=== PATIENT | female | born 1985 | race Caucasian/White ===

== ENCOUNTER 2023-06-19 09:33 | Outpatient (REF) | payer OTHER, SELFPAY ==
[2023-06-19 14:47] LABS: Hematocrit 37.3 % (37.0-47.0); Mean Corpuscular HGB Conc 32.2 g/dl (31.0-35.0); Mean Corpuscular Hemoglobin 31.3 pg (27.0-33.0); Mean Corpuscular Volume 97.4 fL (80.0-98.0); Mean Platelet Volume 9.9 fL (9.4-12.3); Platelet Count 427 X10*3/uL (160-400); Red Blood Count 3.83 X10*6/uL (4.20-5.50); Red Cell Distribution Width 14.7 % (11.0-16.0); White Blood Count 5.3 X10*3/uL (4.8-10.8)
[2023-06-19 15:21] LABS: TSH reflex Free T4 2.18 uIU/mL (0.32-4.0)
[2023-06-19 15:31] LABS: Folate 9.6 ng/mL (> or = 4.0); Vitamin B12 239 pg/mL (200-900)
== END 2023-06-19 09:34 | disposition home or self-care (01) ==
LOC: HO.CHCLDS 09:33
PROVIDERS: Visit Provider Internal Medicine
DX: E03.9 Hypothyroidism, unspecified (principal); K13.0 Diseases of lips
CPT/HCPCS: 36415; 82607; 82746; 84443; 85027

== ENCOUNTER 2023-11-30 09:19 | Outpatient (REF) | payer OTHER, SELFPAY ==
[2023-11-30 14:32] LABS: MANUAL DIFF FLAG NO
[2023-11-30 14:40] LABS: Basophils Absolute Auto 0.1 X10*3/uL (0.0-0.2); Basophils Percent Auto 0.9 % (0-2); Eosinophils Absolute Auto 0.2 X10*3/uL (0.0-0.4); Eosinophils Percent Auto 3.1 % (0-4); Hematocrit 36.6 % (37.0-47.0); Hemoglobin 11.4 g/dl (12.0-16.0); Imm Gran Abs Auto 0.07 X10*3/uL (0.00-0.03); Imm Gran Pct Auto 1.1 % (0.0-0.4); Lymphocytes Absolute Auto 0.9 X10*3/uL (1.2-4.9); Lymphocytes Percent Auto 13.2 % (20-40); Mean Corpuscular HGB Conc 31.1 g/dl (31.0-35.0); Mean Corpuscular Hemoglobin 30.2 pg (27.0-33.0); Mean Corpuscular Volume 97.1 fL (80.0-98.0); Mean Platelet Volume 9.5 fL (9.4-12.3); Monocytes Absolute Auto 0.7 X10*3/uL (0.1-1.2); Monocytes Percent Auto 10.4 % (2-11); Neutrophils Absolute Auto 4.7 x10*3/uL (2.0-8.3); Neutrophils Percent Auto 71.3 % (45-73); Platelet Count 472 X10*3/uL (160-400); Red Blood Count 3.77 X10*6/uL (4.20-5.50); Red Cell Distribution Width 16.1 % (11.0-16.0); White Blood Count 6.5 X10*3/uL (4.8-10.8)
[2023-11-30 14:59] LABS: Alanine Aminotransferase 12 U/L (0-31); Albumin Level 3.6 g/dL (3.5-5.0); Alkaline Phosphatase 74 U/L (39-117); Anion Gap 15 (12-20); Aspartate Amino Transferase 18 U/L (5-31); Bilirubin Total 0.3 mg/dL (0.0-1.0); Blood Urea Nitrogen 13 mg/dL (9-16); Carbon Dioxide 23 mmol/L (22-29); Chloride 105 mmol/L (96-108); Cholesterol 192 mg/dL (<200); Estimated Glomerular Filt Rate > 60; Glucose Random 96 mg/dL (60-115); HDL Cholesterol 32 mg/dL (>40); LDL Cholesterol Calculated 142 mg/dL (<100); Potassium 3.8 mmol/L (3.3-5.1); Sodium 139 mmol/L (135-145); Total Protein 8.4 g/dL (6.5-8.0); Triglycerides 92 mg/dL (<150)
[2023-11-30 15:16] LABS: TSH reflex Free T4 2.05 uIU/mL (0.32-4.0)
[2023-12-01 09:34] LABS: HIV AB/AG Nonreactive (Nonreactive); HIV Num 1 0.05 S/CO (0.00-0.99); ~Hepatitis C Antibody Nonreactive (Nonreactive)
== END 2023-11-30 09:20 | disposition home or self-care (01) ==
LOC: HO.CHCLDS 09:19
PROVIDERS: Visit Provider Internal Medicine
DX: E78.00 Pure hypercholesterolemia, unspecified (principal); E03.9 Hypothyroidism, unspecified; D50.8 Other iron deficiency anemias; N92.1 Excessive and frequent menstruation with irregular cycle
CPT/HCPCS: 36415; 80053; 80061; 84443; 85025; 86803; 87389

== ENCOUNTER 2025-04-03 10:00 | Inpatient (IN) | payer OTHER, SELFPAY ==
[2025-04-03] VITALS (10 sets, daily range): BP systolic 107–139; BP diastolic 61–80; PULSE 65–89; RESP 20–26; TEMP 36.1–36.5; O2SAT 83–95; BMI 35.0
--- NOTE | ~2025-04-03 | XR_ITS ---
EXAMINATION: XR CHEST CLINICAL INFORMATION: dyspnea COMPARISON: None available. TECHNIQUE: 2 views of the chest were obtained. FINDINGS: The cardiac silhouette appears mildly enlarged. There are increased perihilar lung markings. There are low lung volumes. There is no visible pleural effusion XR/XR chest 2V IMPRESSION: Borderline cardiac enlargement and pulmonary vascular congestion. Electronically signed by: Neal Lopez MD 04/03/2025 10:32 AM EDT
--- OUTSIDE RECORDS SUMMARY | 2025-04-03 09:20 | XMS_ITS | Encounter Summary ---
Author Organization [employer] Address [address] [place] [address] Care Team Providers Care Applied Marine Physics Professor Name Role Phone Gladys Borges MD Primary Care Provider [phone] Reason for Visit * Reason Comments Cough Nasal Congestion Encounter Details Date Type Department Care Team ([facility] st Contact Info) Description 04/03/2025 9:20 AM EDT Office Visit [facility] [address] [place] [address] Kely Aleman MD [address] [place] [address] Acute severe exacerbation of asthma (Primary Dx) Social History Tobacco Use Types Packs/Day Years Used Date Smoking Tobacco: Never Passive Smoke Exposure: Never Smokeless Tobacco: Never Depression Answer Date Recorded Patient Health Questionnaire-9 Score 0 11/13/2022 Housing Stability Answer Date Recorded What is your housing situation today? I have jenny ferraro 05/04/[address] you li ve. Do you have problems with any of the following? None of the above 05/04/2023 Food Insecurity Answer Date Recorded Within the past 12 months, y ou worried that your food would run out before you got money to buy more: Never True 05/04/2023 Within the past 12 months,th e food you bought just didn't last and you didn't have enough money to get more: Never True Transportation Answer Date Recorded In the past 12 months, has l ack of transportation kept you from medical appts, meetings, work or from getting things needed for daily living? No 05/04/2023 Utilities Answer Date Recorded In the past 12 months, has t he electric, gas, oil or water company threatened to shut off services in your home? No 05/04/2023 Depression Answer Date Recorded Patient Health Questionnaire-2 Score 0 11/13/2022 Comments Unknown Sex and Gender Information Value Date Recorded Sex Assigned at Female 05/12/2022 10:21 AM EDT Legal Sex Female 10:21 AM EDT Gender Identity Choose not to disclose 10:21 AM EDT Sexual Orientation Choose not to disclose 2021 10:21 AM EDT documented as of this encounter Last Filed Vital Signs Vital Sign Reading Time Taken Comments Blood Pressure 137/72 04/03/2025 8:55 AM EDT Pulse 90 04/03/2025 8:55 AM EDT Temperature 36.4 C (97.6 F) 04/03/2025 8:55 AM EDT Respiratory Rate 24 04/03/2025 8:55 AM EDT Oxygen Saturation 88% 04/03/2025 8:55 AM EDT Inhaled Oxygen Concentration - - Weight 86 kg (189 lb 9.6 oz) 04/03/2025 8:55 AM EDT Height 130.8 cm (4' 3.5 ) 04/03/2025 8:55 AM EDT Body Mass Index 50.26 04/03/2025 8:55 AM EDT documented in this encounter Progress Notes * Kely Aleman MD - 04/03/2025 9:20 AM EDT Subjective Patient ID: Alexis Mares is a 39 y.o. adult who presents for Cough and Nasal Congestion. Cough This is a new problem. The current episode started in the past 7 days. The problem has been gradually worsening. The problem occurs constantly. The cough is Non-productive. Associated symptoms include nasal congestion and rhinorrhea. Alexis has tried nothing for the symptoms. Alexis's past medical history is significant for asthma. Review of Systems HENT: Positive for rhinorrhea. Respiratory: Positive for cough. Objective Physical Exam Constitutional: Appearance: Alexis is ill-appearing. Cardiovascular: Rate and Rhythm: Normal rate and regular rhythm. Pulmonary: Effort: Pulmonary effort is normal. Breath sounds: Decreased air movement present. Decreased breath sounds present. Assessment/Plan Diagnoses and all orders for this visit: Acute severe exacerbation of asthma Comments: Pt given prednisone and Duoneb in the [facility] O2 sat at 87 Pt sent to ER for further eval .? Pneumonia Orders: - predniSONE (Deltasone) tablet 40 mg - ipratropium-albuterol (Duo-Neb) 0.5-2.5 mg/3 mL nebulizer solution 3 mg documented in this encounter Plan of Treatment Upcoming Encounters Date Type Department Care Team (Late st Contact Info) Description 04/24/2025 3:30 PM EDT Office Visit [facility] [address] [place] [address] Gladys Borges MD [address] [place] [address] documented as of this encounter Visit Diagnoses Diagnosis Acute severe exacerbation of asthma- Primary documented in this encounter Administered Medications Inactive Administered Medications - up to 3 most recent administrations Medication Order MAR Action Action Date Dose Rate Site ipratropium-albuterol (Duo-Neb) 0.5-2.5 mg/3 mL nebulizer solution 3 mg 3 mg, Nebulization, Once, On Thu04/03/25 at 0915, For 1 doseIndications:Acute severe exacerbation of asthma Given 04/03/2025 9:15 AM EDT 3 mg predniSONE (Deltasone) tablet 40 mg 40 mg, Oral, Once, On 04/03/25 at 0915, For 1 doseIndications:Acute severe exacerbation of asthma Given 04/03/2025 9:15 AM EDT 40 mg documented in this encounter Additional Health Concerns Assessment Noted Time PHQ-9 Depression Total Score: 0 11/14/19 23 10:38 AM EDT documented as of this encounter Care Teams Applied Marine Physics Professor Relationship Specialty Start Date End Date Gladys Borges MD [address] [place] [address] PCP - General Internal Medicine 07/13/18 documented as of this encounter
--- NOTE | 2025-04-03 10:10 | ED.GENADULT ---
HPI - General Adult General Chief complaint: Upper Respiratory Symptoms Stated complaint: Upper respiratory, sent in by PCP Time Seen by Provider: 04/03/25 11:15 Source: patient Mode of arrival: ambulatory Limitations: no limitations History of Present Illness ED Provider: Ben Donahue HPI narrative: 39-year-old female history of down syndrome, asthma, and hypothyroidism presents to the ED for URI Symptom. patient is sent for primary care for further evaluation. and given 1 dose of steroids and updrafts at clinic. History history of Down syndrome patient was sent to the ED for evaluation. Related Data Home Medications ?Medication ?Instructions ?Recorded ?Confirmed cetirizine 10 mg tablet 10 mg PO DAILY PRN allergies 04/03/25 fluticasone propionate 50 1 - 2 spray intranasal DAILY 04/03/25 mcg/actuation nasal spray,suspension ipratropium bromide 21 mcg (0.03 1 spray intranasal Q12H 04/03/25 %) nasal spray levothyroxine 88 mcg tablet 88 mcg PO DAILY@0600 04/03/25 Allergies Allergy/AdvReac Type Severity Reaction Status Date / Time Sulfa Allergy Unknown Unknown Uncoded 04/03/25 10:11 Review of Systems Review of Systems: Coughing shortness of breath Yes all other systems are reviewed and are negative [facility] Past Medical History Medical History Down syndrome Social History Social History Advance Directives: No Advance Directives Information Provided: Yes Physical Exam ED Vital Signs: Vital Signs - 24 hr 04/03/25 10:09 04/03/25 11:37 04/03/25 13:23 Temperature 97.0 F 97.7 F Pulse Rate 66 65 77 Respiratory Rate 20 20 21 H Blood Pressure 139/65 129/63 Pulse Oximetry 93 93 Oxygen Delivery Method Room Air Room Air 04/03/25 13:50 04/03/25 13:52 Temperature Pulse Rate Respiratory Rate Blood Pressure Pulse Oximetry 83 L 92 Oxygen Delivery Method Room Air Nasal Cannula BMI result Body Mass Index 35.0 Const General: cooperative, healthy appearing, comfortable, no acute distress, well developed, alert, awake and Physically active HENMT Head: Yes normal to inspection, Yes No palpable skull fracture present, Yes normocephalic and Yes atraumatic Eyes General: appearance normal, both eyes and all related structures Neck Neck: Yes normal visual inspection, Yes full ROM, Yes no lymphadenopathy, Yes no meningeal signs, Yes trachea midline, Yes supple, No anterior neck swelling and No tender Chest Chest palpation & inspection: normal inspection of the chest and normal palpation of entire chest wall Resp Effort & Inspection: normal respiratory effort and able to speak in complete sentences Auscultation: clear to auscultation bilaterally Cardio Jugular venous distension: no JVD Heart sounds: S1 normal heart sound present and S2 normal heart sound present GI Inspection: Yes normal to inspection Palpation (GI): Soft to palpation, not firm, nontender, no guarding and not rigid General: Yes no CVA tenderness Back/Spine/Pelvis Back: no CVA tenderness and No back tenderness Skin General skin exam: no rashes or lesions noted, elasticity normal and turgor normal Neuro Other: patient is at baseline mentally. General: no meningeal signs Extrem Other: bilateral lower extremity negative for swelling pitting edema, calf tenderness General: Yes normal to inspection, Yes full ROM and Yes capillary refill normal Psych Appearance: grossly normal, well kempt and not disheveled Course Course Course Narrative: This is a Rapid Medical Examination (RME) performed by Sarah Mills PA-C in triage. Full HPI, ROS, assessment and treatment plan per primary provider in the Main ED. Hx: 39 yo F hx of asthma here from PCP office for eval of dyspnea and low O2 readings (88% on RA) at appointment. reports feeling sick for a while with congestion. was given an albuterol tx and prednisone prior to coming in. PE/vitals: increased effort of breathing, no tripoding. lungs clear. Plan: labs, viral swabs, cxr Medications Administered Discontinued Medications Generic Name Dose Route Start Last Admin Trade Name Freq PRN Reason Stop Dose Admin Albuterol Sulfate 2.5 mg/ 0 mg 04/03/25 13:23 04/03/25 13:25 Albuterol/Ipratropium 3 ml INHALE 04/03/25 13:24 5 dose ONCE ONE Administration Dexamethasone Sodium Phosphate 6 mg 04/03/25 14:34 04/03/25 14:52 Dexamethasone Sod Phosphate 4 Mg/Ml Vial IVPUSH 04/03/25 14:35 6 mg ONCE ONE Administration Magnesium Sulfate 2 gm in 50 mls @ 25 mls/hr 04/03/25 13:46 04/03/25 14:54 Magnesium Sulfate/H2o IV 04/03/25 15:45 25 mls/hr ONCE ONE Administration Procedures EJ/Peripheral Line Arm R: Time Out Performed: Yes Skin Cleansed in Sterile Fashion: Yes Size (gauge): 18 IV Secured and Dressing Applied: Yes Patient Tolerated Procedure: well Medical Decision Making Medical Decision Making [facility] Narrative: 39 year female presents to ED for URI symptoms with further evaluation. Patient's positive COVID x-ray showed possible borderline heart dlilation and pulmonary vascular congestion. in his troponin negative. NT pro BNP came back negative. Patient is not in CHF exacerbation. Patient is not tripoding. ED bronchodilator ordered 4:13pm: patient became hypoxic 83% on room air. Patient was placed on 2 L oxygen. Bedside IV ultrasound was placed. Patient given given Decadron, magnesium, Na ED for bronchodilator. Case resected by hospitalist Nasra Differential Diagnosis Differential Diagnoses: The differential diagnosis associated with the presentation includes ( TN, COVID, CHF, influenza) Admission/Observation Consideration of admission/observation: Escalation of care including admission/observation considered Consult Healthcare Provider Management of the patient was discussed with: Hospitalist (Nasra Barnes) Lab Data [facility] Lab Attestation statement: I reviewed the patient's lab results. 04/03/25 10:41 04/03/25 10:41 Labs: Lab Results 04/03/25 04/03/25 Range/Units 10:41 11:53 WBC 5.7 (4.8-10.8) X10*3/uL RBC 3.66 L (4.20-5.50) X10*6/uL Hgb 11.2 L (12.0-16.0) g/dl Hct 35.4 L (37.0-47.0) % MCV 96.7 (80.0-98.0) fL MCH 30.6 (27.0-33.0) pg MCHC 31.6 (31.0-35.0) g/dl RDW 16.2 H (11.0-16.0) % Plt Count 418 H (160-400) X10*3/uL MPV 9.3 L (9.4-12.3) fL Immature Gran % (Auto) 0.7 H (0.0-0.4) % Neut % (Auto) 72.5 (45-73) % Lymph % (Auto) 16.2 L (20-40) % Wise % (Auto) 7.3 (2-11) % Eos % (Auto) 2.1 (0-4) % Baso % (Auto) 1.2 (0-2) % Lymph # (Auto) 0.9 L (1.2-4.9) X10*3/uL Wise # (Auto) 0.4 (0.1-1.2) X10*3/uL Eos # (Auto) 0.1 (0.0-0.4) X10*3/uL Baso # (Auto) 0.1 (0.0-0.2) X10*3/uL Abs Immat Gran (auto) 0.04 H (0.00-0.03) X10*3/uL Absolute Neuts (auto) 4.2 (2.0-8.3) x10*3/uL Absolute Nucleated RBC 0.000 (0.0-0.012) X10*3/uL Nucleated RBC % (auto) 0.0 (0.0-0.2) /100WBC Sodium 138 (135-145) mmol/L Potassium 3.9 (3.3-5.1) mmol/L Chloride 105 (96-108) mmol/L Carbon Dioxide 27 (22-29) mmol/L Anion Gap 10 L (12-20) BUN 15 (9-16) mg/dL Creatinine 0.78 (0.5-1.4) mg/dL Estim Creat Clear Calc 64.4 Estimated GFR > 60 Random Glucose 104 (60-115) mg/dL Calcium 8.8 (8.4-10.2) mg/dL Magnesium 2.0 (1.6-2.6) mg/dL Total Bilirubin 0.2 (0.0-1.0) mg/dL AST 20 (5-31) U/L ALT 11 (0-31) U/L Alkaline Phosphatase 85 (39-117) U/L Troponin I High Sens < 2.7 (<3.5-17.0) ng/L NT-Pro-B Natriuret Pep 17.9 (<300) pg/mL Total Protein 8.4 H (6.5-8.0) g/dL Albumin 3.9 (3.5-5.0) g/dL COVID-19 (RACHNA) Positive A (Negative) COVID-19 Clin Com See Note Influenza Type A (GLADYS) Negative (Negative) Influenza Type B (GLADYS) Negative (Negative) Influenza A & B Note See Note Independent Interpretation I performed an independent interpretation of an: EKG ( negative STEMI) and Plain X-Ray Radiology Impression Discussion of test interpretation with radiology: I have reviewed the radiologist's reading. Independent Historian Clinical information obtained from an independent historian. History obtained from or confirmed by: Parent (Mother) Discharge Plan Discharge Clinical Impression: Asthma, COVID-19 Patient Disposition: Admitted As Inpatient
[2025-04-03 10:47] LABS: MANUAL DIFF FLAG NO
[2025-04-03 10:49] LABS: Hematocrit 35.4 % (37.0-47.0); Hemoglobin 11.2 g/dl (12.0-16.0); Imm Gran Abs Auto 0.04 X10*3/uL (0.00-0.03); Imm Gran Pct Auto 0.7 % (0.0-0.4); Lymphocytes Absolute Auto 0.9 X10*3/uL (1.2-4.9); Mean Corpuscular HGB Conc 31.6 g/dl (31.0-35.0); Mean Corpuscular Hemoglobin 30.6 pg (27.0-33.0); Mean Corpuscular Volume 96.7 fL (80.0-98.0); NRBC Abs Auto 0.000 X10*3/uL (0.0-0.012); NRBC Pct Auto 0.0 /100WBC (0.0-0.2); Platelet Count 418 X10*3/uL (160-400); Red Blood Count 3.66 X10*6/uL (4.20-5.50); White Blood Count 5.7 X10*3/uL (4.8-10.8)
[2025-04-03 10:57] LABS: COVID-19 Test Positive (Negative); IDNOW Serial# 58CA691E
[2025-04-03 11:04] LABS: Alanine Aminotransferase 11 U/L (0-31); Albumin Level 3.9 g/dL (3.5-5.0); Alkaline Phosphatase 85 U/L (39-117); Anion Gap 10 (12-20); Aspartate Amino Transferase 20 U/L (5-31); Blood Urea Nitrogen 15 mg/dL (9-16); Calcium 8.8 mg/dL (8.4-10.2); Carbon Dioxide 27 mmol/L (22-29); Chloride 105 mmol/L (96-108); Creatinine Clr Calc Pharmacy 64.4; Estimated Glomerular Filt Rate > 60; Magnesium 2.0 mg/dL (1.6-2.6); Potassium 3.9 mmol/L (3.3-5.1); Sodium 138 mmol/L (135-145); Total Protein 8.4 g/dL (6.5-8.0)
[2025-04-03 11:07] LABS: IDNOW Serial# 08D9AD1C; Influenza B2 Negative (Negative)
--- NOTE | 2025-04-03 11:19 | ECG_ITS ---
Test Reason : sob Blood Pressure : */* mmHG Vent. Rate : 68 BPM Atrial Rate : 68 BPM P-R Int : 140 ms QRS Dur : 86 ms QT Int : 446 ms P-R-T Axes : -1 38 35 degrees QTcB Int : 474 ms Normal sinus rhythm Cannot rule out Inferior infarct , age undetermined Abnormal ECG No previous ECGs available Referred By: Ben Cortes Electronically Signed By:
[2025-04-03 12:24] LABS: NT Pro B Type Natriuretic Pept 17.9 pg/mL (<300)
[2025-04-03 12:26] LABS: Troponin-I High Sensitivity < 2.7 ng/L (<3.5-17.0)
[2025-04-03] MEDS: Albuterol Sulfate 2.5 MG, Albuterol/Iprat 2.5/0.5MG 3 ML 3 ML INHALE (13:25)
--- OUTSIDE RECORDS SUMMARY | 2025-04-03 13:43 | XMS_ITS | Clinical Summary ---
Author Organization [employer] Address [address] [place] [address] [address] [place] [address] Care Team Providers Care Posting Machine Operator Name Role Phone Gladys Borges MD Primary Care Provider Allergies No known active allergies Medications * This document contains information received from the source organization and may not represent a complete record from that organization. D3-1000 25 MCG (1000 UT) capsule Take 25 mcg by mouth in the morning. 02/07/20 22 Active Misc. Devices (Pulse Oximeter For Finger) miscIndications:M ild persistent asthma with (acute) exacerbation To use daily 1 each 03/04/20 23 Active fluticasone (Flovent HFA) 110 MCG/ACT inhalerIndication s:Mild persistent asthma with (acute) exacerbation Inhale 1 puff every 12 (twelve) hours. 12 g 3 03/04/20 23 Active ketoconazole (NIZOral) 2 % creamIndications: Perleche Apply topically in the morning. 15 g 06/18/20 23 Active Multiple Vitamin (multivitamin) tabletIndications :Acquired hypothyroidism Take 1 tablet by mouth in the morning. 30 tablet 3 06/22/20 23 Active ferrous sulfate 325 (65 Fe) MG tabletIndications :Menorrhagia with irregular cycle,Other iron deficiency anemia Take 1 tablet (325 mg) by mouth with breakfast. 30 tablet 3 02/10/20 24 Active sodium chloride ([place]) 0.65 % nasal sprayIndications: Nasal congestion Administer 1 spray into each nostril if needed for congestion or rhinitis. 15 mL 04/22/20 24 2024 Active levothyroxine (Synthroid, Levoxyl) 88 MCG tabletIndications :Hypothyroidism TAKE 1 TABLET BY MOUTH EVERY DAY 90 tablet 3 06/28/20 24 Active albuterol (2.5 MG/3ML) 0.083% nebulizer solutionIndicatio ns:Mild persistent asthma with (acute) exacerbation INHALE 3 MILLILITER BY NEBULIZER EVERY 6 HOURS NEEDED 75 mL 11 08/17/19 25 Active albuterol 108 (90 Base) MCG/ACT inhalerIndication s:Mild persistent asthma without complication Inhale 2 puffs Every 4-6 hours as needed for wheezing or shortness of breath. 18 g 3 08/17/19 25 Active Spacer/Aero-Holdi ng Chambers (OptiChamber Petty) misc 1 each every 4 (four) hours if needed (asthma). 1 each 08/17/19 25 Active hydrocortisone 2.5 % ointmentIndicatio ns:Angular cheilitis Apply topically 2 times daily. 20 g 09/14/19 25 Active cetirizine (ZyrTEC) 10 MG tabletIndications :Nasal congestion TAKE 1 TABLET BY MOUTH ONCE DAILY NEEDED FOR ALLERGIES OR CONGESTION 90 tablet 02/16/20 25 Active ipratropium (Atrovent) 0.03 % nasal sprayIndications: Upper respiratory infection with cough and congestion Administer 1 spray into each nostril every 12 (twelve) hours. 30 mL 12 02/21/20 25 2025 Active fluticasone (Flonase) 50 MCG/ACT nasal spray ADMINISTER 1-2 SPRAYS INTO EACH NOSTRIL ONCE PER DAY. 48 mL 1 03/10/20 25 Active fluticasone (Flonase) 50 MCG/ACT nasal spray ADMINISTER 1-2 SPRAYS INTO EACH NOSTRIL ONCE PER DAY. 48 mL 1 09/09/19 25 2024 Discontinued Hospital, Clinic, or Other Facility Administered Medication Ordered Dose Route Frequency Start Date End Date Status predniSONE (Deltasone) tablet 40 mgIndications:Acute severe exacerbation of asthma 40 mg PO Once 04/03/2025 04/03/2025 Ended ipratropium-albutero l (Duo-Neb) 0.5-2.5 mg/3 mL nebulizer solution 3 mgIndications:Acute severe exacerbation of asthma 3 mg NEBULIZATION Once 04/03/2025 04/03/2025 Ended Active Problems Problem Noted Date Diagnosed Date Asthma exacerbation 08/26/2024 Assessment & Plan (08/26/2024 3:44 PM EST): Educated to avoid triggers Continue to use albuterol inhaler and nebs as needed I will prescribe prednisone 40 mg for 5 days Letter for her daily program done today Hypercholesterolemia 09/09/2022 Impacted cerumen 04/25/2014 Menorrhagia 04/25/2014 Anemia 03/04/2012 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 Hypothyroidism 03/04/2012 Encounters Date Type Department Care Team Description 04/03/2025 9:20 AM EDT Office Visit [facility] [address] [address] Kely Aleman MD Acute severe exacerbation of asthma (Primary Dx) 04/03/2025 Orders Only [facility] External Provider, [facility] 04/03/2025 Travel 03/10/2025 Refill [facility] [address] [address] Gladys Borges MD 02/20/2025 9:40 AM EDT Office Visit [facility] [address] [address] Nasra Broderick MD Upper respiratory infection with cough and congestion (Primary Dx); Persistent cough 02/20/2025 Travel 02/14/2025 Refill [facility] [address] [place] [address] Gladys Borges MD Nasal congestion from Last 3 Months Immunizations Immunization Administration Dates Next Due Influenza injectable quadriv alent IIV4 with preservative 04/13/2019,05/10/2018,04/07/2017,2015,05/09/2015 Influenza injectable quadriv alent preservative free 06/18/2023,05/22/2022,05/06/2021,2019 Influenza, Split (incl. tejal fied surface antigen) 04/04/2013 Influenza, seasonal, injecta ble, preservative free 04/28/2024 Pneumococcal Conjugate PCV 20 11/27/2023 Tdap 05/09/2015 Family History Medical History Relation Name Comments Asthma Mother Hypertension Mother No Known Problems Paternal Grandmother Relation Name Status Comments Mother Paternal Grandmother Social History Tobacco Use Types Packs/Day Years Used Date Smoking Tobacco: Never Passive Smoke Exposure: Never Smokeless Tobacco: Never Tobacco Cessation:Counseling Given: Not Answered Depression Answer Date Recorded Patient Health Questionnaire-9 [...] not to disclose 2021 10:21 AM EDT Last Filed Vital Signs Vital Sign Reading [...] Mass Index 50.26 04/03/2025 8:55 AM EDT Plan of Treatment Upcoming Encounters Date Type Department Care Team ([facility] st Contact Info) Description 04/24/2025 3:30 PM EDT Office Visit [facility] [address] [place] [address] Gladys Borges MD [address] [place] [address] Health Maintenance Due Date Last Done Comments Disability Screening 1983 Alcohol/Substance Use Screening 1995 Family Planning (PISQ) 1998 HPV Vaccines (1 - 3-dose series) 1998 Hepatitis B Vaccines (1 of 3 - 19+ 3-dose series) 2002 Pap Smear 2004 Cervical Cancer Screening 2013 HPV/Cotest 2013 Depression Screening 11/14/2023 11/13/2022, 11/14/19 SDOH Screening 11/14/2023 11/13/2022 COVID-19 Vaccine ( - season) 2025 09/04/2021, 10/17/2020, 09/19/2020 Influenza Vaccine (#1) 2025 , 06/18/2023, 05/22/2022, Additional history exists DTaP/Tdap/Td Vaccines (2 - Td or Tdap) 05/09/2025 05/09/2015 Mammogram 01/05/2026 01/06/2024 Tobacco Screening 02/20/2026 02/20/2025 Zoster Vaccines (1 of 2) 2033 RSV Patients and Patients Aged 60 years or older (1 - 1-dose 75+ series) 2058 Pneumococcal Vaccine: Pediatrics (0 to 5 Years) and At-Risk Patients (6 to 49) Years Completed 11/27/2023 HIV Screening Completed 11/30/2023 Hepatitis C Screening Completed 11/30/2023 HIB Vaccines Aged Out No longer eligi ble based on patient's age to complete this topic Hepatitis A Vaccines Aged Out No long er eligible based on patient's age to complete this topic IPV Vaccines Aged Out No longer eligi ble based on patient's age to complete this topic Meningococcal B Vaccine Aged Out No l onger eligible based on patient's age to complete this topic Meningococcal Vaccine Aged Out No marnie emely eligible based on patient's age to complete this topic RSV under 20 months Aged Out No longe r eligible based on patient's age to complete this topic Rotavirus Vaccines Aged Out No longer eligible based on patient's age to complete this topic Procedures Procedure Name Priority Date/Time Associated Diagnosis Comments HIGH SENSITIVITY TROPONIN I Routine 04/03/2025 11:53 AM EDT NT-PROBNP Routine 04/03/2025 11:53 AM EDT MAGNESIUM Routine 04/03/2025 10:41 AM EDT COMPREHENSIVE METABOLIC PANEL Routine 04/03/2025 10:41 AM EDT COVID-19 ID NOW (BARRERA) Routine 04/03/2025 10:41 AM EDT CBC WITH AUTO DIFFERENTIAL Routine 04/03/2025 10:41 AM EDT INFLUENZA A B2 ID NOW (BARRERA) Routine 04/03/2025 10:41 AM EDT XR CHEST 2 VIEWS Routine 04/03/2025 10:2 2 AM EDT POCT INFLUENZA A (ID NOW RAPID MOLECULAR) Routine 02/20/2025 10:00 AM EDT Upper respiratory infection with cough and congestion POCT INFLUENZA B (ID NOW RAPID MOLECULAR) Routine 02/20/2025 9:58 AM EDT Upper respiratory infection with cough and congestion POCT RAPID COVID ANTIGEN Routine 02/20/2025 9:55 AM EDT Upper respiratory infection with cough and congestion POCT RAPID STREP A Routine 02/20/2025 9: 44 AM EDT Upper respiratory infection with cough and congestion BI MAMMOGRAM SCREENING TOMOSYNTHESIS BILATERAL Routine 01/06/2024 Screening mammogram for breast cancer HEPATITIS C AB W/REFL TO HCV RNA, QN, PCR Routine 11/30/2023 8:01 AM EDT Menorrhagia with irregular cycle HIV 1/2 ANTIGEN/ANTIBODY, FOURTH GENERATION W/RFL Routine 11/30/2023 8:01 AM EDT Menorrhagia with irregular cycle from Last 3 Months or Most Recently Relevant to Health Maintenance Results * High Sensitivity Troponin I (04/03/2025 11:53 AM EDT) Pathologist [facility] TROPONIN I HIGH SENSITIVITY <2.7 <3.5 - 17.0 ng/L [facility] Comment:The Barrera high sens itivity Troponin-I results should beused in conjunction with other diagnostic information suchas ECG, clinical observations and information, and patientsymptoms to aid in the diagnosis of LA. 04/03/2025 11:5 3 AM EDT 04/03/2025 11:59 AM EDT us Generic External Data Provider LAB BLOOD ORDERAB LES Final Result [facility] [address] [place] [phone] * NT-proBNP (04/03/2025 11:53 AM EDT) Pathologist [facility] NT-proBNP 17.9 <300 pg/mL [facility] Comment:Reference Range:Age Group (years) NT-proBNP (pg/ml) InterpretationAll <300 Negative: HF unlikelyFor patients presenting to the ED with clinical suspicion ofnew onset or worsening HF, see below:18 to <50 >299.9 to <450.0 Grayzone: [id number] to 75 >299.9 to <900.0 other causes of>75 >299.9 to <1800.0 NT-proBNP tfymldleg16 to <50 >449.9 Positive: HF [id number] >899.9>75 >1799.9Note: Elevated NT-proBNP levels should be interpreted inthe context of other clinical information. 04/03/2025 11:5 3 AM EDT 04/03/2025 11:59 AM EDT Generic External Data Provider LAB BLOOD ORDERAB LES Final Result Performing Organization Address [facility] Co de Phone Number [facility] [address] [place] [address] [phone] * Influenza A B2 ID NOW (Barrera) (04/03/2025 10:41 AM EDT) IDNOW SERIAL# [id number] [facility] Influenza A Negative Negative [facility] Influenza B2 Negative Negative [facility] Influenza A B2 Note See Note [facility] Comment:The Barrera ID NOW In fluenza A B2 test is used for thequalitative detection of influenza A and B from patientswith signs and symptoms of respiratory infection.Negative results do not preclude influenza virus infectionand should not be used as the sole basis for diagnosis,treatment or other patient management decisions.There is a risk of false negative results due to thepresence of variants in the viral targets of the assay, lowlevels of virus in the specimen and co- infection withRespiratory Syncytial Virus. 04/03/2025 10:4 1 AM EDT 04/03/2025 10:45 AM EDT Generic External Data Provider LAB MICROBIOLOGY - GENERAL ORDERABLES Final Result Performing Organization Address [facility]/ZIP Co de Phone Number [facility] [address] [place] [phone] * (ABNORMAL) COVID-19 ID NOW (BARRERA) (04/03/2025 10:41 AM EDT) IDNOW SERIAL# [id number] [facility] COVID-19 TEST Positive (A) Negative [facility] COVID-19 NOTE See Note [facility] Comment: Results are for the identification of SARS-CoV2 RNA. TheSARS-CoV2 RNA is generally detectable in respiratory samplesduring the acute phase of infection. Positive results areindicative of the presence of SARS-CoV-2 RNA; clinicalcorrelation with patient history and other diagnosticinformation is necessary to determine patient infectionstatus. Positive results do not rule out bacterial infectionor co- infection with other viruses.Testing facilities within the [facility] and itsterritories are required to report all positive results tothe appropriate public health authorities.Negative results should be treated as presumptive and, ifinconsistent with clinical signs and symptoms or necessaryfor patient management, should be tested with differentauthorized or cleared molecular tests. Negative results donot preclude SARS-CoV2 RNA infection and should not be usedas the sole basis for patient management decisions. Negativeresults should be considered in the context of a patient'srecent exposures, history and the presence of clinical signsand symptoms consistent with COVID-19.This test has been authorized by the FDA under an EmergencyUse Authorization (EUA) for use by authorized laboratories.Testing performed on the K1 Speed NOW utilizing NAAT. 04/03/2025 10:4 1 AM EDT 04/03/2025 10:45 AM EDT us Generic External Data Provider LAB MOLECULAR RICARDA GNOSTICS ORDERABLES Final Result [facility] [address] [place] [address] [phone] * (ABNORMAL) CBC auto differential (04/03/2025 10:41 AM EDT) White Blood Count 5.7 4.8 - 10.8 X10*3/uL [facility] Red Blood Count 3.66(L) 4.20 - 5.50 X10*6/uL [facility] Hemoglobin 11.2(L) 12.0 - 16.0 g/dl [facility] Hematocrit 35.4(L) 37.0 - 47.0 % [facility] Mean Corpuscular Volume 96.7 80.0 - 98.0 fL [facility] Mean Corpuscular Hemoglobin 30.6 27.0 - 33.0 pg [facility] Mean Corpuscular HGB Conc 31.6 31.0 - 35.0 g/dl [facility] Red Cell Distribution Width 16.2(H) 11.0 - 16.0 % [facility] Platelet Count 418(H) 160 - 400 X10*3/uL [facility] Mean Platelet Volume 9.3(L) 9.4 - 12.3 fL [facility] Neutrophils Percent Auto 72.5 45 - 73 % [facility] Imm Gran Pct Auto 0.7(H) 0.0 - 0.4 % [facility] Lymphocytes Percent Auto 16.2(L) 20 - 40 % [facility] Monocytes Percent Auto 7.3 2 - 11 % [facility] Eosinophils Percent Auto 2.1 0 - 4 % [facility] Basophils Percent Auto 1.2 0 - 2 % [facility] NRBC Pct Auto 0.0 0.0 - 0.2 /100WBC [facility] Neutrophils Absolute Auto 4.2 2.0 - 8.3 x10*3/uL [facility] Imm Gran Abs Auto 0.04(H) 0.00 - 0.03 X10*3/uL [facility] Lymphocytes Absolute Auto 0.9(L) 1.2 - 4.9 X10*3/uL [facility] Monocytes Absolute Auto 0.4 0.1 - 1.2 X10*3/uL [facility] Eosinophils Absolute Auto 0.1 0.0 - 0.4 X10*3/uL [facility] Basophils Absolute Auto 0.1 0.0 - 0.2 X10*3/uL [facility] NRBC Abs Auto 0.000 0.0 - 0.012 X10*3/uL [facility] 04/03/2025 10:4 1 AM EDT 04/03/2025 10:45 AM EDT us Generic External Data Provider LAB BLOOD ORDERAB LES Final Result [facility] [address] [place] [address] [phone] * Magnesium (04/03/2025 10:41 AM EDT) Pathologist [facility] Magnesium 2.0 1.6 - 2.6 mg/dL [facility] 04/03/2025 10:4 1 AM EDT 04/03/2025 10:45 AM EDT us Generic External Data Provider LAB BLOOD ORDERAB LES Final Result Performing Organization Address [facility] Co de Phone Number [facility] [address] [place] [address] [phone] * (ABNORMAL) Comprehensive Metabolic Panel (04/03/2025 10:41 AM EDT) Pathologist [facility] Sodium 138 135 - 145 mmol/L [facility] Potassium 3.9 3.3 - 5.1 mmol/L [facility] Chloride 105 96 - 108 mmol/L [facility] Carbon Dioxide 27 22 - 29 mmol/L [facility] Anion Gap 10(L) 12 - 20 [facility] Urea Nitrogen (BUN) 15 9 - 16 mg/dL [facility] Creatinine, Serum 0.78 0.5 - 1.4 mg/dL [facility] Creatinine Clr Calc Pharmacy 64.4 [facility] Comment:Provided height and weight: 134.62 cm,63.503 kg.eGFR (calculated from the MDRD study equation) and eCrCl(calculated from the Cockcroft-Gault equation) are based ondifferent parameters and may not yield comparable results.If eCrCl result is absurd, please check patient'sheight/weight. Estimated Glomerular Filt Rate >60 [facility] Comment:Chronic Kidney Disea se: Estimated GFR < 60 mL/min/1.49h3Bfdern Kidney Disease: Estimated GFR < 15 mL/min/1.73m2 Glucose 104 60 - 115 mg/dL [facility] Calcium 8.8 8.4 - 10.2 mg/dL [facility] Bilirubin, Total 0.2 0.0 - 1.0 mg/dL [facility] Aspartate Amino Transferase 20 5 - 31 U/L [facility] Alanine Aminotransferase 11 0 - 31 U/L [facility] Total Protein 8.4(H) 6.5 - 8.0 g/dL [facility] Albumin Level 3.9 3.5 - 5.0 g/dL [facility] Alkaline Phosphatase 85 39 - 117 U/L [facility] 04/03/2025 10:4 1 AM EDT 04/03/2025 10:45 AM EDT us Generic External Data Provider LAB BLOOD ORDERAB LES Final Result Performing Organization Address City/State/[facility] Co de Phone Number [facility] [address] [place] [phone] * XR Chest 2 Views (04/03/2025 10:22 AM EDT) Anatomical Region Laterality Modality Chest Radiographic Irene ging 04/03/2025 10:2 2 AM EDT Narrative 04/03/2025 10:35 AM EDT [address] [address] XRay Report Signed Patient: Alexis Mares MR#: [id number] : 1985 Acct:[id number] Age/Sex: 39 / F ADM Date: 04/03/25 Loc: .ED Attending Dr: Ordering Physician: Kathrin Mills Date of Service: 04/03/25 Procedure(s): XR chest 2V Accession Number(s): [id number] cc: Gladys Borges MD; Kathrin Mills Reason for Exam: dyspnea EXAMINATION: XR CHEST CLINICAL INFORMATION: dyspnea COMPARISON: None available. TECHNIQUE: 2 views of the chest were obtained. FINDINGS: The cardiac silhouette appears mildly enlarged. There are increased perihilar lung markings. There are low lung volumes. There is no visible pleural effusion XR/XR chest 2V IMPRESSION: Borderline cardiac enlargement and pulmonary vascular congestion. Electronically signed by: Neal Lopez MD 04/03/2025 10:32 AM EDT RP Dictated By: Neal Lopez MD Signed By: <Electronically signed by Neal Lopez MD in OV> 04/03/25 1032 DD/ 1022 TD/TT: 04/03/25 1028 [facility] Navigator: Procedure Note Donotuseinterpreter, Image - 04/03/[address] [address] XRay Report Signed Patient: Keerthi Mares#: [id number] : 1985Acct:[id number] Age/Sex: 39 / FADM Date: 04/03/25 Loc: .ED Attending Dr: Ordering Physician: Kathrin Mills Date of Service: 04/03/25 Procedure(s): XR chest 2V Accession Number(s): [id number] cc: Gladys Borges MD; Kathrin Mills Reason for Exam: dyspnea EXAMINATION: XR CHEST CLINICAL INFORMATION: dyspnea COMPARISON: None available. TECHNIQUE: 2 views of the chest were obtained. FINDINGS: The cardiac silhouette appears mildly enlarged. There are increased perihilar lung markings. There are low lung volumes. There is no visible pleural effusion XR/XR chest 2V IMPRESSION: Borderline cardiac enlargement and pulmonary vascular congestion. Electronically signed by: Neal Lopez MD 04/03/2025 10:32 AM EDT RP Dictated By: Neal Lopez MD Signed By: <Electronically signed by Neal Lopez MD in OV> 04/03/25 1032 DD/ 1022 TD/TT: 04/03/25 1028 Community Health Navigator: [facility] External Provider IMG XR PROCEDURES Edited Result - Final * POCT Rapid Influenza A [facility]A ID NOW (02/20/2025 10:00 AM EDT) [facility] Influenza A Negative Negative, Indeterminate [facility] QC Media Lot # [id number] [facility] Lot# Expiration Date [facility] Swab 02/20/2025 10:0 0 AM EDT Nasra Broderick MD POINT OF CARE TEST ENTER/E DIT ORDERABLES Final Result Performing Organization Address [facility] Co de Phone Number [facility] [address] [place] [phone] * POCT Rapid Influenza B BARRERA ID NOW (02/20/2025 9:58 AM EDT) [facility] Influenza B Negative Negative, Indeterminate [facility] QC Media Lot # [id number] [facility] Lot# Expiration Date [facility] Swab 02/20/2025 9:58 AM EDT Nasra Broderick MD POINT OF CARE TEST ENTER/E DIT ORDERABLES Final Result Performing Organization Address [facility] de Phone Number [facility] [address] [place] [phone] * POCT Rapid Covid-19 BinaxNOW (02/20/2025 9:55 AM EDT) [facility] Rapid COVID Ag Negative Swab 02/20/2025 9:55 AM EDT us Nasra Broderick MD POINT OF CARE TEST ENTER/E DIT ORDERABLES Final Result * POCT rapid strep A manually resulted (02/20/2025 9:44 AM EDT) [facility] Rapid Strep A Screen Negative Negative, None Detected Swab 02/20/2025 9:44 AM EDT Nasra Broderick MD POINT OF CARE TEST ENTER/E DIT ORDERABLES Final Result * BI Mammogram Screening Tomosynthesis Bilateral (01/06/2024) Anatomical Region Laterality Modality Breast Bilateral Mammography us Gladys Borges MD IMG BI PROCEDURES Final Res ult * Hepatitis C Antibody with Reflex to HCV, RNA, Quantitative, Real-Time PCR (11/30/2023 8:01 AM EDT) Hepatitis C Antibody Nonreactive Nonreactive [facility] Comment:Antibodies to HCV no t detected; does not exclude early acuteHCV infection. Blood Venous blood specimen / Unknown 11/30/2023 8:01 AM EDT 11/30/2023 2:27 PM EDT Gladys Borges MD LAB BLOOD ORDERABLES Final Result [facility] [address] [place] [phone] * HIV-1/2 Antigen and Antibodies, Fourth Generation, with Reflexes (11/30/2023 8:01 AM EDT) HIV AB/AG Nonreactive Nonreactive [facility] Comment:HIV-1 p24 Ag and/or HIV-1/HIV-2 Ab not detected.A test result that is nonreactive does not exclude thepossibility of exposure to or infection with HIV-1 and/orHIV-2. Nonreactive results in this assay for individualswith prior exposure to HIV-1 and/or HIV-2 may be due toantigen and antibody levels that are below the limit ofdetection of this assay.The Progeniq HIV Ag/Ab Combo assay result andsupplemental assay results should be interpreted inconjunction with the patient's clinical presentation,history and other laboratory results. If the results areinconsistent with clinical evidence, additional testing issuggested to confirm the result. Blood Venous blood specimen / Unknown 11/30/2023 8:01 AM EDT 11/30/2023 2:27 PM EDT us Gladys Borges MD LAB BLOOD ORDERABLES Final Result [facility] [address] [place] [address] [phone] from Last 3 Months or Most Recently Relevant to Health Maintenance Insurance [employer] < [address] [place] [id number] Care Teams Posting Machine Operator Relationship Specialty Start Date End Date Gladys Borges MD [address] [place] [address] PCP - General Internal Medicine 07/13/18
--- OUTSIDE RECORDS SUMMARY | 2025-04-03 13:43 | XMS_ITS | Encounter Summary ---
Author Organization [employer] Address [address] [place] [address] 7 [place] [address] Care Team Providers Care Combined Rail Operator Name Role Phone Gladys Borges MD Primary Care Provider [phone] Reason for Visit * Reason Onset Date Comments Medication Question 12/03/2023 Encounter Details Date Type Department Care Team ([facility] Contact Info) Description 12/03/2023 Telephone [facility] [address] [place] [address] Gladys Borges MD [address] [place] [address] Medication Question Social History Tobacco Use Types Packs/Day Years Used Date Smoking Tobacco: Never Passive Smoke Exposure: Never Smokeless Tobacco: Never Depression Answer Date Recorded Patient Health Questionnaire-9 Score 0 11/13/2022 Housing Stability Answer Date Recorded What is your housing situation today? I have jennygabrielle ferraro 05/04/[address] you [...] the past 12 months, has t he [employer], [employer], oil or water [employer] threatened to shut off services in your [...] AM EDT documented as of this encounter Miscellaneous Notes * Telephone Encounter - Sadie Mares RN - 12/03/2023 11:01 AM EDT Called pharmacy regarding message below. [facility] receive [facility] reason Debrox that was prescribed on 11/27/23. Pt sister now is requesting rx to be sent to [facility] pharmacy. Please advise. * Telephone Encounter - Salome Radford - 12/03/2023 9:46 AM EDT Tc from pt sister calling to inform went to [facility] 2 times and they have not yet gotten medication script for carbamide peroxide (Debrox) 6.5 % otic solution . States would like for pcp to send script to [facility] pharmacy instead of [facility]. Please call pt sister to clarify. documented in this encounter Plan of Treatment Upcoming Encounters Date Type Department Care Team ([facility] st Contact Info) Description 04/24/2025 3:30 PM EDT Office Visit [facility] [address] [place] [address] Gladys Borges MD [address] [place] [address] documented as of this encounter Visit Diagnoses Not on filedocumented in this encounter Additional Health Concerns Assessment Noted Time PHQ-9 Depression Total Score: 0 11/14/19 10:38 AM EDT documented as of this encounter Care Teams Combined Rail Operator Relationship Specialty Start Date End Date Gladys Borges MD [address] [place] [phone] PCP - General Internal Medicine 07/13/18 documented as of this encounter
--- OUTSIDE RECORDS SUMMARY | 2025-04-03 13:43 | XMS_ITS | Encounter Summary ---
Author Organization [employer] Address [address] [place] [address] 7t [place] [address] Care Team Providers Care Medical Biller Coder Name Role Phone Gladys Borges MD Primary Care Provider [phone] Encounter Details Date Type Department Care Team (Late st Contact Info) Description 04/03/2025 Orders Only [facility] External Provider, [facility] Social History Tobacco Use Types Packs/Day Years [...] AM EDT documented as of this encounter Plan of Treatment Upcoming Encounters Date Type Department Care Team (Late st Contact Info) Description 04/24/2025 3:30 PM EDT Office Visit [facility] [address] [place] [address] Gladys Borges MD [address] [place] [address] documented as of this encounter Procedures Procedure Name Priority Date/Time Associated Diagnosis Comments HIGH SENSITIVITY TROPONIN I Routine 04/03/2025 11:53 AM EDT NT-PROBNP Routine 04/03/2025 11:53 AM EDT INFLUENZA A B2 ID NOW (BARRERA) Routine 04/03/2025 10:41 AM EDT COVID-19 ID NOW (BARRERA) Routine 04/03/2025 10:41 AM EDT CBC WITH AUTO DIFFERENTIAL Routine 04/03/2025 10:41 AM EDT MAGNESIUM Routine 04/03/2025 10:41 AM EDT COMPREHENSIVE METABOLIC PANEL Routine 04/03/2025 10:41 AM EDT XR CHEST 2 VIEWS Routine 04/03/2025 10:2 2 AM EDT documented in this encounter Results * High Sensitivity Troponin I (04/03/2025 11:53 AM EDT) TROPONIN I HIGH SENSITIVITY <2.7 <3.5 - 17.0 ng/L [facility] Comment:The Barrera high sens itivity Troponin-I results should beused in conjunction with other diagnostic information suchas ECG, clinical observations and information, and patientsymptoms to aid in the diagnosis of CT. 04/03/2025 11:5 3 AM EDT 04/03/2025 11:59 AM EDT us Generic External Data Provider LAB BLOOD ORDERAB LES Final Result Performing Organization Address [facility] Co de Phone Number [facility] [address] [place] [phone] * NT-proBNP (04/03/2025 11:53 AM EDT) NT-proBNP 17.9 <300 pg/mL [facility] Comment:Reference Range:Age Group (years) NT-proBNP (pg/ml) InterpretationAll <300 Negative: HF unlikelyFor patients presenting to the ED with clinical suspicion ofnew onset or worsening HF, see below:18 to <50 >299.9 to <450.0 Grayzone: [id number] to 75 >299.9 to <900.0 other causes of>75 >299.9 to <1800.0 NT-proBNP [id number] to <50 >449.9 Positive: HF [id number] >899.9>75 >1799.9Note: Elevated NT-proBNP levels should be interpreted inthe context of other clinical information. 04/03/2025 11:5 3 AM EDT 04/03/2025 11:59 AM EDT us Generic External Data Provider LAB BLOOD ORDERAB LES Final Result Performing Organization Address City/[facility]/ZIP Co de Phone Number [facility] [address] [place] [phone] * Influenza A B2 ID NOW (Barrera) (04/03/2025 10:41 AM EDT) IDNOW SERIAL# [id number] [facility] Influenza A Negative Negative [facility] Influenza B2 Negative Negative [facility] Influenza A B2 Note See Note [facility] Comment:The Barrera ID NOW In [...] GENERAL ORDERABLES Final Result Performing Organization Address [facility] Co de Phone Number [facility] [address] [place] [phone] * Magnesium (04/03/2025 10:41 AM EDT) Pathologist [facility] Magnesium 2.0 1.6 - 2.6 mg/dL [facility] 04/03/2025 10:4 1 AM EDT 04/03/2025 10:45 AM EDT Generic External Data Provider LAB BLOOD ORDERAB LES Final Result Performing Organization Address [facility] Co de Phone Number [facility] [address] [place] [phone] * (ABNORMAL) Comprehensive Metabolic Panel (04/03/2025 10:41 AM EDT) Pathologist [facility] Sodium 138 135 - 145 mmol/L [facility] Potassium 3.9 3.3 - 5.1 mmol/L [facility] Chloride 105 96 - 108 mmol/L [facility] Carbon Dioxide 27 22 - 29 mmol/L [facility] Anion Gap 10(L) 12 - 20 [facility] Urea Nitrogen (BUN) 15 9 - 16 mg/dL [facility] Creatinine, Serum 0.78 0.5 - 1.4 mg/dL [facility] Creatinine Clr Calc Pharmacy 64.4 [facility] Comment:Provided height and weight: 134.62 cm,63.503 kg.eGFR (calculated from the MDRD study equation) and eCrCl(calculated from the Cockcroft-Gault equation) are based ondifferent parameters and may not yield comparable results.If eCrCl result is absurd, please check patient'sheight/weight. Estimated Glomerular Filt Rate >60 [facility] Comment:Chronic Kidney Disea se: Estimated GFR < 60 mL/min/1.57q9Fymudx Kidney Disease: Estimated GFR < 15 mL/min/1.73m2 Glucose 104 60 - 115 mg/dL [facility] Calcium 8.8 8.4 - 10.2 mg/dL [facility] Bilirubin, Total 0.2 0.0 - 1.0 mg/dL [facility] Aspartate Amino Transferase 20 5 - 31 U/L [facility] Alanine Aminotransferase 11 0 - 31 U/L [facility] Total Protein 8.4(H) 6.5 - 8.0 g/dL [facility] Albumin Level 3.9 3.5 - 5.0 g/dL [facility] Alkaline Phosphatase 85 39 - 117 U/L [facility] 04/03/2025 10:4 1 AM EDT 04/03/2025 10:45 AM EDT us Generic External Data Provider LAB BLOOD ORDERAB LES Final Result [facility] [address] [place] [phone] * (ABNORMAL) COVID-19 ID NOW (BARRERA) (04/03/2025 10:41 AM EDT) IDNOW SERIAL# [id number] [facility] COVID-19 TEST Positive (A) Negative [facility] COVID-19 NOTE See Note [facility] Comment: Results are for the identification of SARS-CoV2 RNA. TheSARS-CoV2 RNA is generally detectable in respiratory samplesduring the acute phase of infection. Positive results areindicative of the presence of SARS-CoV-2 RNA; clinicalcorrelation with patient history and other diagnosticinformation is necessary to determine patient infectionstatus. Positive results do not rule out bacterial infectionor co- infection with other viruses.Testing facilities within the [place] and itsterritories are required to report all [...] use by authorized laboratories.Testing performed on the [employer] NOW utilizing NAAT. 04/03/2025 10:4 1 AM EDT 04/03/2025 10:45 AM EDT us Generic External Data Provider LAB MOLECULAR RICARDA [employer]NOST[employer] ORDERABLES Final Result [facility] [address] [place] [phone] * (ABNORMAL) CBC auto differential (04/03/2025 10:41 AM EDT) White Blood Count 5.7 4.8 - 10.8 X10*3/uL [facility] Red Blood Count 3.66(L) 4.20 - 5.50 X10*6/uL [facility] Hemoglobin 11.2(L) 12.0 - 16.0 g/dl [facility] Hematocrit 35.4(L) 37.0 - 47.0 % [facility] Mean Corpuscular Volume 96.7 80.0 - 98.0 fL [facility] Mean Corpuscular Hemoglobin 30.6 27.0 - 33.0 pg [facility] Mean Corpuscular HGB Conc 31.6 31.0 - 35.0 g/dl [facility] Red Cell Distribution Width 16.2(H) 11.0 - 16.0 % [facility] Platelet Count 418(H) 160 - 400 X10*3/uL [facility] Mean Platelet Volume 9.3(L) 9.4 - 12.3 fL [facility] Neutrophils Percent Auto 72.5 45 - 73 % [facility] Imm Gran Pct Auto 0.7(H) 0.0 - 0.4 % [facility] Lymphocytes Percent Auto 16.2(L) 20 - 40 % [facility] Monocytes Percent Auto 7.3 2 - 11 % [facility] Eosinophils Percent Auto 2.1 0 - 4 % [facility] Basophils Percent Auto 1.2 0 - 2 % [facility] NRBC Pct Auto 0.0 0.0 - 0.2 /100WBC [facility] Neutrophils Absolute Auto 4.2 2.0 - 8.3 x10*3/uL [facility] Imm Gran Abs Auto 0.04(H) 0.00 - 0.03 X10*3/uL [facility] Lymphocytes Absolute Auto 0.9(L) 1.2 - 4.9 X10*3/uL [facility] Monocytes Absolute Auto 0.4 0.1 - 1.2 X10*3/uL [facility] Eosinophils Absolute Auto 0.1 0.0 - 0.4 X10*3/uL [facility] Basophils Absolute Auto 0.1 0.0 - 0.2 X10*3/uL [facility] NRBC Abs Auto 0.000 0.0 - 0.012 X10*3/uL [facility] 04/03/2025 10:4 1 AM EDT 04/03/2025 10:45 AM EDT us Generic External Data Provider LAB BLOOD ORDERAB LES Final Result [facility] [address] [place] [phone] [phone] * XR Chest 2 Views (04/03/2025 10:22 AM EDT) Anatomical Region Laterality Modality Chest Radiographic Irene ging 04/03/2025 10:2 2 AM EDT Narrative 04/03/2025 10:35 AM EDT [address] [address] XRay Report Signed Patient: Alexis Mares MR#: [id number] : 1985 Acct:[id number] Age/Sex: 39 / F ADM Date: 04/03/25 Loc: HO.ED Attending Dr: Ordering Physician: Kathrin Mills Date of Service: 04/03/25 Procedure(s): XR chest 2V Accession Number(s): [id number] cc: Gladys Borges MD; Kathrin Mills Reason [...] Neal Lopez MD 04/03/2025 10:32 AM EDT Dictated By: Neal Lopez MD Signed By: <Electronically signed by Neal Lopez MD in OV> 04/03/25 1032 DD/ 1022 TD/TT: 04/03/25 1028 Home Builder: Procedure Note Donotuseinterpreter, Image - 04/03/[address] [address] XRay Report Signed Patient: Keerthi Mares#: [id number] : 1985Acct:[id number] Age/Sex: 39 / FADM Date: 04/03/25 Loc: HO.ED Attending Dr: Ordering Physician: Kathrin Mills Date of Service: 09/22/25 Procedure(s): XR chest 2V Accession Number(s): [id number] cc: Gladys Borges MD; Kathrin Mills Reason [...] 04/03/25 1032 DD/ 1022 TD/TT: 04/03/25 1028 Home Builder: [facility] External Provider IMG XR PROCEDURES Edited Result - Final documented in this encounter Visit Diagnoses Not on filedocumented in this encounter Additional Health Concerns Assessment Noted Time PHQ-9 Depression Total Score: 0 11/14/19 23 10:38 AM EDT documented as of this encounter Care Teams Medical Biller Coder Relationship Specialty Start Date End Date Gladys Borges MD [address] [place] [phone] PCP - General Internal Medicine 07/13/18 documented as of this encounter
--- OUTSIDE RECORDS SUMMARY | 2025-04-03 13:43 | XMS_ITS | Encounter Summary ---
Author Organization [employer] Address [address] [facility] 7t [place] [address] Care Team Providers Care Account Maintenance Representative Name Role Phone Gladys Borges MD Primary Care Provider [phone]- [phone] Reason for Visit * Reason Onset Date Comments Nurse Triage 04/26/2024 Encounter Details Date Type Department Care Team ([facility] st Contact Info) Description 04/26/2024 Telephone [facility] [address] [place] [address] Gladys Borges MD [address] [place] [address] Nurse Triage Social History Tobacco Use Types Packs/Day Years [...] encounter Miscellaneous Notes * Telephone Encounter - Dary Pedraza RN - 04/26/2024 1:57 PM EDT Called pt. Via [employer]. Pt. States that She has an upcoming appt. For afu with PCP on 06/13/24 to recheck lip sore and swelling. Pt is looking for sooner appointment. Apptfor fu on lip has been rescheduled to 05/05/24 at 11:15am. Pt is requesting a printed copy be sent to her home address. I will send this note to [facility] PCP ANGUS to please print out appointment info and mail a copy to pt. As I do not have access due to remote. * Telephone Encounter - Jong Su - 04/26/2024 1:53 PM EDT Symptom: Mouth Sores or Ulcers - Caller Reports Outcome: Schedule an urgent appointment (within 1 hour) or talk to a nurse or provider soon Reason: Severe pain now The caller accepted this outcome. documented in this encounter Plan of Treatment Upcoming Encounters Date Type Department Care Team ([facility] st Contact Info) Description 04/24/2025 3:30 PM EDT Office Visit [facility] [address] [place] [address] Gladys Borges MD [address] [place] [address] documented as of this encounter Visit Diagnoses Not on filedocumented in this encounter Additional Health Concerns Assessment Noted Time PHQ-9 Depression Total Score: 0 11/14/19 23 10:38 AM EDT documented as of this encounter Care Teams Account Maintenance Representative Relationship Specialty Start Date End Date Gladys Borges MD [address] [place] [address] PCP - General Internal Medicine 07/13/18 documented as of this encounter
--- OUTSIDE RECORDS SUMMARY | 2025-04-03 13:43 | XMS_ITS | Encounter Summary ---
Author Organization [employer] Address [address] [place] [address] 7 [place] [address] Care Team Providers Care Strategic Sourcing Manager Name Role Phone Gladys Borges MD Primary Care Provider [phone]- [phone] Encounter Details Date Type Department Care Team (Latest Contact Info) Description 04/03/2025 Travel Social History Tobacco Use Types Packs/Day Years [...] EDT Gender Identity Choose not to disclose 10/31/202 2 10:21 AM EDT Sexual Orientation Choose not to disclose 2021 10:21 AM EDT documented as of this encounter Plan of Treatment Upcoming Encounters Date Type Department Care Team ([facility] st Contact Info) Description 04/24/2025 3:30 PM EDT Office Visit [facility] P[facility]S [address] [place] [address] Gladys Borges MD [address] [place] [address] documented as of this encounter Visit Diagnoses Not on filedocumented in this encounter Additional Health Concerns Assessment Noted Time PHQ-9 Depression Total Score: 0 11/14/19 23 10:38 AM EDT documented as of this encounter Care Teams Strategic Sourcing Manager Relationship Specialty Start Date End Date Gladys Borges MD [address] [place] [address] PCP - General Internal Medicine 07/13/18 documented as of this encounter
--- OUTSIDE RECORDS SUMMARY | 2025-04-03 13:43 | XMS_ITS | Encounter Summary ---
Author Organization [email or web address] Address [address] [place] [address] 7t [place] [address] Care Team Providers Care Sales Representative [employer] Name Role Phone Gladys Borges MD Primary Care Provider [phone]- [phone] Encounter Details Date Type Department Care Team ([facility] st Contact Info) Description 12/03/2023 Orders Only [facility] [address] [place] [address] Gladys Borges MD [address] [place] [address] Impacted cerumen, unspecified laterality (Primary Dx) Social History Tobacco Use Types [...] Description 04/24/2025 3:30 PM EDT Office Visit [facility] [address] [place] [address] Gladys Borges MD [address] [place] [address] documented as of this encounter Visit Diagnoses Diagnosis Impacted cerumen, unspecified laterality- Primary documented in this encounter Additional Health Concerns Assessment Noted Time PHQ-9 Depression Total Score: 0 11/14/19 23 10:38 AM EDT documented as of this encounter Care Teams Sales Representative [employer] Relationship Specialty Start Date End Date Gladys Borges MD [address] [place] [address] PCP - General Internal Medicine 07/13/18 documented as of this encounter
--- OUTSIDE RECORDS SUMMARY | 2025-04-03 13:43 | XMS_ITS | Encounter Summary ---
Author Organization [employer] Address [address] [place] [address] 7t [place] [address] Care Team Providers Care Esol Teacher Name Role Phone Gladys Borges MD Primary Care Provider [phone]- [phone] Reason for Visit * Reason Comments Med Refill Encounter Details Date Type Department Care Team ([facility] st Contact Info) Description 05/07/2024 Refill [facility] [address] [place] [address] Gladys Borges MD [address] [place] [address] Menorrhagia with irregular cycle; Other iron deficiency anemia Social History Tobacco Use Types Packs/Day Years [...] Description 04/24/2025 3:30 PM EDT Office Visit [facility] [address] [place] [address] Gladys Borges MD [address] [place] [address] documented as of this encounter Visit Diagnoses Diagnosis Menorrhagia with irregular cycle Other iron deficiency anemia documented in this encounter Additional Health Concerns Assessment Noted Time PHQ-9 Depression Total Score: 0 11/14/19 23 10:38 AM EDT documented as of this encounter Care Teams Esol Teacher Relationship Specialty Start Date End Date Gladys Borges MD [address] [place] [address] PCP - General Internal Medicine 07/13/18 documented as of this encounter
--- OUTSIDE RECORDS SUMMARY | 2025-04-03 13:43 | XMS_ITS | Encounter Summary ---
Author Organization [employer] Address [address] [place] [address] 7t [place] [address] Care Team Providers Care Correction Warden Name Role Phone Gladys Borges MD Primary Care Provider [phone]- [phone] Encounter Details Date Type Department Care Team ([facility] st Contact Info) Description 02/10/2024 Orders Only [facility] [address] [place] [address] Gladys Borges MD [address] [place] [address] Menorrhagia with irregular cycle (Primary Dx); Other iron deficiency anemia Social History Tobacco [...] Description 04/24/2025 3:30 PM EDT Office Visit [facility] [address] [place] [address] Gladys Borges MD [address] [place] [address] documented as of this encounter Visit Diagnoses Diagnosis Menorrhagia with irregular cycle- Primary Other iron deficiency anemia documented in this encounter Additional Health Concerns Assessment Noted Time PHQ-9 Depression Total Score: 0 11/14/19 23 10:38 AM EDT documented as of this encounter Care Teams Correction Warden Relationship Specialty Start Date End Date Gladys Borges MD [address] [place] [address] PCP - General Internal Medicine 07/13/18 documented as of this encounter
--- OUTSIDE RECORDS SUMMARY | 2025-04-03 13:43 | XMS_ITS | Encounter Summary ---
Author Organization [employer] Address [address] [facility] 7t [place] [address] Care Team Providers Care Country Sales Manager Name Role Phone Gladys Borges MD Primary Care Provider [phone]- [phone] Reason for Visit * Reason Onset Date Comments Call Back Request 04/13/2024 Encounter Details Date Type Department Care Team ([facility] st Contact Info) Description 04/13/2024 Telephone [facility] MEDICINE [address] [place] [address] Gladys Borges MD [address] [place] [address] Call Back Request Social History Tobacco Use Types Packs/Day Years [...] t he electric, gas, oil or water [employer] threatened to shut off services in your [...] encounter Miscellaneous Notes * Telephone Encounter - Oni Crow - 04/13/2024 1:04 PM EDT Tc from [facility] with [facility] calling in regards to records she received. Records state she does not have a sulfa allergy but she can see from 2010 till recent she's always had a sulfa allergy. Sierra is requesting a call back to clarify if this is a mistake. Please contact Sierra at [phone] ext [phone]. documented in this encounter Plan of Treatment Upcoming Encounters Date Type Department Care Team (Late st Contact Info) Description 04/24/2025 3:30 PM EDT Office Visit [facility] MED & PEDS [address] [place] [address] Gladys Borges MD [address] [place] [address] documented as of this encounter Visit Diagnoses Not on filedocumented in this encounter Additional Health Concerns Assessment Noted Time PHQ-9 Depression Total Score: 0 11/14/19 23 10:38 AM EDT documented as of this encounter Care Teams Country Sales Manager Relationship Specialty Start Date End Date Gladys Borges MD [address] [place] [address] PCP - General Internal Medicine 07/13/18 documented as of this encounter
[2025-04-03] MEDS: Magnesium Sulfate/H2O 2 GM/50 ML PIGGYBACK IV (14:54)
--- NOTE | 2025-04-03 15:28 | PM.IMHP ---
History of Present Illness Date of Service: 04/03/25 Attending physician on admission: Yong Valencia Chief Complaint: cough This is a 39-year-old female with a history of Down syndrome who was brought to the emergency department by family due to shortness of breath. History was primarily obtained from her sister at the bedside. Her sister states that she was seen in an outpatient clinic 1 month ago and was treated with a course of antibiotics. At that time she tested negative for coronavirus. She has had persistent dry cough and runny nose over the past several weeks and more recently has reported being tired with shortness of breath. Today she came to the emergency department for evaluation and tested positive for COVID-19 and chest x-ray showed possible pulmonary vascular congestion but pro BNP and troponin are both negative. She received breathing treatment prior to arrival, and an additional treatment plus Decadron in the emergency room. Oxygen saturation was 83% on room air initially, this improved to 92% on 4 L nasal cannula. Due to hypoxia she will be admitted to the hospital for further management. Review of Systems Review of Systems: patient denies any symptoms at all - sister said she will always answer that she feels ok Yes all other systems are reviewed and are negative Respiratory: Respiratory: Reports cough PMFSH Medical History Down syndrome Social History Smoked in Last 30 Days: No Use of substances other than those prescribed or required for medical reasons: No Advance Directives: No Advance Directives Information Provided: Yes Patient : No Meds Allergies Allergy/AdvReac Type Severity Reaction Status Date / Time Sulfa Allergy Unknown Unknown Uncoded 04/03/25 10:11 Active Medications: Current Medications Magnesium Sulfate (Magnesium Sulfate/H2o) 2 gm in 50 mls @ 25 mls/hr IV ONCE ONE Stop: 04/03/25 15:45 Last Admin: 04/03/25 14:54 Dose: 25 mls/hr Home Medications ?Medication ?Instructions ?Recorded ?Confirmed ?Last Taken ?Type cetirizine 10 mg tablet 10 mg PO DAILY PRN allergies 04/03/25 04/03/25 Unknown History fluticasone propionate 50 1 - 2 spray intranasal DAILY 04/03/25 04/03/25 Unknown History mcg/actuation nasal spray,suspension ipratropium bromide 21 mcg (0.03 1 spray intranasal Q12H 04/03/25 04/03/25 04/02/25 History %) nasal spray levothyroxine 88 mcg tablet 88 mcg PO DAILY@0600 04/03/25 04/03/25 04/02/25 History Physical Exam Vital Signs and Narrative: Vital Signs: Last Vital Signs Temp 97.7 F 04/03/25 11:37 Pulse 77 04/03/25 13:23 Resp 21 H 04/03/25 13:23 BP 129/63 04/03/25 11:37 Pulse Ox 92 04/03/25 13:52 O2 Del Method Nasal Cannula 04/03/25 13:52 Oxygen Flow Rate 4 04/03/25 13:52 BMI result Body Mass Index 35.0 Const: General: cooperative, comfortable, no acute distress, alert and awake Nutritional Appearance: obese Orientation/consciousness: oriented to person Resp: Other: mild tachypnea Effort & Inspection: normal respiratory effort, able to speak in complete sentences and no use of accessory muscles Cardio: Rate: regular rate GI: Inspection: No distended and Yes obesity Neuro: General: oriented to person, moves all extremities and CN's II-XI intact bilaterally Extrem: General: No pedal edema Results Labs 04/03/25 10:41 04/03/25 10:41 Labs: Laboratory Results - last 24 hr 04/03/25 04/03/25 10:41 11:53 MCV 96.7 MCH 30.6 MCHC 31.6 RDW 16.2 H Plt Count 418 H MPV 9.3 L Immature Gran % (Auto) 0.7 H Neut % (Auto) 72.5 Lymph % (Auto) 16.2 L Weber % (Auto) 7.3 Eos % (Auto) 2.1 Baso % (Auto) 1.2 Lymph # (Auto) 0.9 L Weber # (Auto) 0.4 Eos # (Auto) 0.1 Baso # (Auto) 0.1 Abs Immat Gran (auto) 0.04 H Absolute Neuts (auto) 4.2 Absolute Nucleated RBC 0.000 Nucleated RBC % (auto) 0.0 Anion Gap 10 L Estim Creat Clear Calc 64.4 Estimated GFR > 60 Random Glucose 104 Calcium 8.8 Magnesium 2.0 Total Bilirubin 0.2 AST 20 ALT 11 Alkaline Phosphatase 85 Troponin I High Sens < 2.7 NT-Pro-B Natriuret Pep 17.9 Total Protein 8.4 H Albumin 3.9 COVID-19 (RACHNA) Positive A COVID-19 Clin Com See Note Influenza Type A (GLADYS) Negative Influenza Type B (GLADYS) Negative Influenza A & B Note See Note Imaging Radiologist's Impressions: Impressions Chest X-Ray 04/03/25 10:22 IMPRESSION: Borderline cardiac enlargement and pulmonary vascular congestion. Electronically signed by: Neal Lopez MD 04/03/2025 10:32 AM EDT RP Assessment and Plan (1) COVID-19: Status: Acute (2) Asthma: Status: Acute Plan This is a 39-year-old female with history of Down syndrome, asthma, hypothyroidism who presents to the emergency department with 1 month history of shortness of breath, dry cough found to have COVID-19 and hypoxia Acute respiratory failure with hypoxia due to COVID-19 symptoms ongoing for nearly a month per family, but previously tested negative for covid 19 treat with IV decadron, breathing treatments given duration of symptoms not a candidate for remdecivir continue supplemental oxygen, wean as tolerated hypothyroidism continue synthroid morbid obesity BMI 35.0. likely contributing to respiratory symptoms weight loss encouraged dvt ppx - lovenox Will likely require 2 midnight stay in the hospital for management of acute respiratory failure due to COVID-19 requiring supplemental oxygen and close monitoring of respiratory status Quality Stroke Does the patient have a stroke diagnosis?: No VTE Prior VTE?: No VTE Risk Level:: Medical - moderate - high VTE Device Contraindication: N/A - Device Ordered VTE Drug Contraindication: N/A - Med Ordered
--- NOTE | 2025-04-03 16:55 | PHA.MEDREC ---
Addendum entered by Terrie Quinn [facility] 04/03/25 17:03: Reviewed by [facility] Original Note: Pharmacy Consult ? Medication Reconciliation Pharmacy has completed the medication reconciliation. Spoke with pt sister at bedside (Sisi) and she was able to confirm pt medications. Pt takes Levothyroxine usually @1830 (sister gives pt levothyroxine in the evening not in am), but is ok with us giving the pt the Levothyroxine @0600.
[2025-04-03] MEDS: 0.9 % Sodium Chloride Flush 3 ML SYRINGE IVFLUSH (17:47)
--- NOTE | 2025-04-03 18:04 | PC.NURSE ---
Returned from lunch, covering RN stated pts O2 sat dropped to 85% pt placed on O2 @ 4L via NC. Respiratory called for further eval
--- NOTE | 2025-04-03 18:11 | HO.NURTONUR ---
Per sister at bedside, pt has had URI sx's x 3 weeks. Was seen at Urgent Care, placed on abx x 5 days, however pt never improved. Pt here today w/ worsening sob and hypoxia w/ RA sats as low as 85%. Pt was also found to be Covid +. Pt has hx of Downs and lives w/ family. She is independent w/ ADL's.
[2025-04-03] MEDS: Albuterol/Iprat 2.5/0.5MG 3 ML AMPUL.NEB INHALE (20:25)
--- NOTE | 2025-04-03 21:26 | PC.NURSE ---
assumed care of pt, sister at bedside. Pt respirations even and unlabored with 2 L 02 n/c.
[2025-04-04] VITALS (11 sets, daily range): BP systolic 111–124; BP diastolic 56–84; PULSE 61–86; RESP 17–28; TEMP 36.4–36.8; O2SAT 91–100; BMI 35.0
[2025-04-04] MEDS: 0.9 % Sodium Chloride Flush 3 ML SYRINGE IVFLUSH ×3 (00:07→21:15)
--- NOTE | 2025-04-04 05:32 | PC.NURSE ---
pt medicated per MAR
[2025-04-04] MEDS: Albuterol/Iprat 2.5/0.5MG 3 ML AMPUL.NEB INHALE ×3 (07:49→20:30)
--- NOTE | 2025-04-04 08:09 | PC.NURSE ---
Patient is a 39-year-old female with a history of Down syndrome who was brought to the emergency department by family due to shortness of breath. Her sister states that she was seen in an outpatient clinic 1 month ago and was treated with a course of antibiotics. At that time she tested negative for coronavirus. She has had persistent dry cough and runny nose over the past several weeks and more recently has reported being tired with shortness of breath. Today she came to the emergency department for evaluation and tested positive for COVID-19 and chest x-ray showed possible pulmonary vascular congestion but pro BNP and troponin are both negative. She received breathing treatment prior to arrival, and an additional treatment plus Decadron in the emergency room. Oxygen saturation was 83% on room air initially, this improved to 92% on 4 L nasal cannula. Due to hypoxia she will be admitted to the hospital for further management. Patient alert and cooperative with care. Lungs essentially clear with a occas expiratory wheeze noted. Patient oob to the recliner and noted to be dyspneic on exertion. Abdoman large soft, non-tender with positive bowel sounds. Positive pedal pulses with LE edema noted secondary to her down's.
--- NOTE | 2025-04-04 11:38 | MHC.CM.PN ---
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
--- NOTE | 2025-04-04 15:43 | HO.PM.IMPN ---
Subjective Subjective Date of Service: 04/04/25 Interval History: covid infection Review of Systems sob with minimal excersion mild cough she seems similar Review of Systems: Yes all other systems are reviewed and are negative Physical Exam Exam: Exam: Appearance: Alert.? Oriented X3.?sob with minimal excersion cvs: [id number], [id number]. res: air enrty diminshed at bases . abd: no rebound or guarding ,nt, bs present. ext pulses present , no cyanosis . neuro: axo3 , nonfocal. Vital Signs: Vital Signs: Last Vital Signs Temp 98.1 F 04/04/25 12:00 Pulse 82 04/04/25 13:18 Resp 18 04/04/25 13:18 BP 111/56 L 04/04/25 12:00 Pulse Ox 91 L 04/04/25 12:00 O2 Del Method Nasal Cannula 04/04/25 12:00 O2 Flow Rate 1 04/04/25 12:00 Oxygen Flow Rate 4 04/03/25 13:52 BMI result Body Mass Index 35.0 Objective Data Active Medications Acetaminophen (Acetaminophen 325 Mg Tablet) 650 mg PO Q6H PRN PRN Reason: Pain, Mild 1-3,fever,headache Albuterol Sulfate (Albuterol Sulfate (0.083%) 2.5 Mg/3 Ml Vial.Neb) 2.5 mg INHALE Q6H PRN PRN Reason: Shortness of Breath/Wheezing Albuterol/Ipratropium (Albuterol/Iprat 2.5/0.5mg 3 Ml Ampul.Neb) 3 ml INHALE RQ6H WHILE AWAKE [facility] Last Admin: 04/04/25 13:15 Dose: 3 ml Documented By: SIMA Calcium Carbonate (Calcium Carbonate 750 Mg Tab.Chew) 750 mg PO Q4H PRN PRN Reason: Heartburn Dexamethasone Sodium Phosphate (Dexamethasone Sod Phosphate 4 Mg/Ml Vial) 6 mg IVPUSH Q24H [facility] Last Admin: 04/03/25 19:44 Dose: 6 mg Documented By: LAUREEN Enoxaparin Sodium (Enoxaparin Sodium 40 Mg/0.4 Ml Syringe) 40 mg SUBCUT Q24H [facility] Last Admin: 04/03/25 17:49 Dose: 40 mg Documented By: FILI Fluticasone Propionate (Fluticasone Propionate Nasal 16 Gm [place]) 1 spray NOSTRIL-B DAILY [facility] Last Admin: 04/04/25 09:15 Dose: 1 spray Documented By: AMBROSE Levothyroxine Sodium (Levothyroxine Sodium 88 Mcg Tablet) 88 mcg PO DAILY@0600 [facility] Last Admin: 04/04/25 05:29 Dose: 88 mcg Documented By: OLIMPIA Loratadine (Loratadine 10 Mg Tablet) 10 mg PO DAILY PRN PRN Reason: allergies Magnesium Hydroxide (Milk Of Magnesia 30 Ml Oral.Susp) 30 ml PO DAILY PRN PRN Reason: Constipation Melatonin (Melatonin 3 Mg Tablet) 6 mg PO BEDTIME PRN PRN Reason: Insomnia Sodium Chloride (0.9 % Sodium Chloride Flush 3 Ml Syringe) 3 ml IVFLUSH QSHIFT [facility] Last Admin: 04/04/25 07:04 Dose: Not Given Documented By: SHRTUI Non-Admin Reason: See Note Labs 04/03/25 10:41 04/03/25 10:41 Assessment and Plan (1) COVID-19: Status: Acute Plan 39-year-old female with history of Down syndrome, asthma, hypothyroidism who presents to the emergency department with 1 month history of shortness of breath, dry cough found to have COVID-19 and hypoxia Acute respiratory failure with hypoxia due to COVID-19 symptoms ongoing for nearly a month per family, but previously tested negative for covid 19 treat with IV decadron, breathing treatments given duration of symptoms not a candidate for remdecivir continue supplemental oxygen, wean as tolerated Incentive spirometry, chest physiotherapy Id eval. hypothyroidism continue synthroid morbid obesity BMI 35.0. likely contributing to respiratory symptoms weight loss encouraged dvt ppx - lovenox ongiing need for hospital management of acute respiratory failure due to COVID-19 requiring supplemental oxygen and close monitoring of respiratory status Quality Stroke Does the patient have a stroke diagnosis?: No VTE Prior VTE?: No VTE Risk Level:: Medical - moderate - high VTE Device Contraindication: N/A - Device Ordered VTE Drug Contraindication: N/A - Med Ordered
[2025-04-05] VITALS (8 sets, daily range): BP systolic 109–124; BP diastolic 53–74; PULSE 67–90; RESP 18–20; TEMP 36.3–36.7; O2SAT 87–95
[2025-04-05] MEDS: Albuterol/Iprat 2.5/0.5MG 3 ML AMPUL.NEB INHALE ×3 (07:47→20:29)
--- NOTE | 2025-04-05 08:48 | P.PNIM_ITS ---
Subjective Subjective Date of Service: 04/05/25 Interval History: covid Review of Systems sob with minimal excersion ,sats also drop 90range Review of Systems: Yes all other systems are reviewed and are negative Physical Exam 2 Exam: Exam: Appearance: Alert.? Oriented X3.?sob with minimal excersion cvs: rrr, [id number]. res: air enrty diminshed at bases . abd: no rebound or guarding ,nt, bs present. ext pulses present , no cyanosis . neuro: axo3 , nonfocal. Vital Signs: Vital Signs: Last Vital Signs Temp 97.4 F 04/05/25 07:56 Pulse 77 04/05/25 07:56 Resp 20 04/05/25 07:56 BP 109/53 L 04/05/25 07:56 Pulse Ox 92 04/05/25 07:56 O2 Del Method Nasal Cannula 04/05/25 07:56 O2 Flow Rate 1 04/05/25 07:56 Oxygen Flow Rate 4 04/03/25 13:52 BMI result Body Mass Index 35.0 Objective Data Active Medications Acetaminophen (Acetaminophen 325 Mg Tablet) 650 mg PO Q6H PRN PRN Reason: Pain, Mild 1-3,fever,headache Albuterol Sulfate (Albuterol Sulfate (0.083%) 2.5 Mg/3 Ml Vial.Neb) 2.5 mg INHALE Q6H PRN PRN Reason: Shortness of Breath/Wheezing Albuterol/Ipratropium (Albuterol/Iprat 2.5/0.5mg 3 Ml Ampul.Neb) 3 ml INHALE RQ6H WHILE AWAKE [facility] Last Admin: 04/05/25 07:47 Dose: 3 ml Documented By: JESSICA Calcium Carbonate (Calcium Carbonate 750 Mg Tab.Chew) 750 mg PO Q4H PRN PRN Reason: Heartburn Dexamethasone Sodium Phosphate (Dexamethasone Sod Phosphate 4 Mg/Ml Vial) 6 mg IVPUSH Q24H [facility] Last Admin: 04/04/25 21:14 Dose: 6 mg Documented By: JARAD Enoxaparin Sodium (Enoxaparin Sodium 40 Mg/0.4 Ml Syringe) 40 mg SUBCUT Q24H [facility] Last Admin: 04/04/25 16:14 Dose: 40 mg Documented By: SHANELLERPCHANTEL Fluticasone Propionate (Fluticasone Propionate Nasal 16 Gm [place]) 1 spray NOSTRIL-B DAILY [facility] Last Admin: 04/04/25 09:15 Dose: 1 spray Documented By: AMBROSE Levothyroxine Sodium (Levothyroxine Sodium 88 Mcg Tablet) 88 mcg PO DAILY@0600 [facility] Last Admin: 04/05/25 06:19 Dose: 88 mcg Documented By: JARAD Loratadine (Loratadine 10 Mg Tablet) 10 mg PO DAILY PRN PRN Reason: allergies Magnesium Hydroxide (Milk Of Magnesia 30 Ml Oral.Susp) 30 ml PO DAILY PRN PRN Reason: Constipation Melatonin (Melatonin 3 Mg Tablet) 6 mg PO BEDTIME PRN PRN Reason: Insomnia Last Admin: 04/04/25 21:15 Dose: 6 mg Documented By: JARAD Sodium Chloride (0.9 % Sodium Chloride Flush 3 Ml Syringe) 3 ml IVFLUSH QSHIFT [facility] Last Admin: 04/05/25 08:04 Dose: Not Given Documented By: JENNIFER Non-Admin Reason: Previously Administered Labs 04/03/25 10:41 04/03/25 10:41 Assessment and Plan (1) COVID-19: Status: Acute Plan 39-year-old female with history of Down syndrome, asthma, hypothyroidism who presents to the emergency department with 1 month history of shortness of breath, dry cough found to have COVID-19 and hypoxia Acute respiratory failure with hypoxia due to COVID-19 symptoms ongoing for nearly a month per family, but previously tested negative for covid 19 treat with IV decadron, breathing treatments given duration of symptoms not a candidate for remdecivir continue supplemental oxygen, wean as tolerated Incentive spirometry, chest physiotherapy Id eval. hypothyroidism continue synthroid morbid obesity BMI 35.0. likely contributing to respiratory symptoms weight loss encouraged dvt ppx - lovenox ongiing need for hospital management of acute respiratory failure due to COVID- 19 requiring supplemental oxygen and close monitoring of respiratory status Quality Stroke Does the patient have a stroke diagnosis?: No VTE Prior VTE?: No VTE Risk Level:: Medical - moderate - high VTE Device Contraindication: N/A - Device Ordered VTE Drug Contraindication: N/A - Med Ordered
--- NOTE | 2025-04-05 11:34 | MHC.CM.PN ---
EMR reviewed and per MD rounds, pt is not medically cleared for discharge due to management of acute respiratory failure due to COVID-19 infection.
[2025-04-05] MEDS: 0.9 % Sodium Chloride Flush 3 ML SYRINGE IVFLUSH ×2 (16:10→20:09)
[2025-04-06] VITALS (12 sets, daily range): BP systolic 123–129; BP diastolic 61–71; PULSE 62–84; RESP 16–20; TEMP 36.2–36.6; O2SAT 86–98
[2025-04-06] MEDS: Albuterol/Iprat 2.5/0.5MG 3 ML AMPUL.NEB INHALE ×2 (07:43→14:14)
[2025-04-06] MEDS: 0.9 % Sodium Chloride Flush 3 ML SYRINGE IVFLUSH ×3 (08:44→20:08)
--- NOTE | 2025-04-06 10:22 | PC.NURSE ---
trialed pt off supplemental o2, pt sats dropped to 86% provider made aware. pt placed back on 1L NC and sating 94%.
--- NOTE | 2025-04-06 12:23 | P.PNIM_ITS ---
Subjective Subjective Date of Service: 04/06/25 Interval History: feeling better Physical Exam 2 Exam: Exam: Appearance: Alert.? Oriented X3.?sob with minimal excersion cvs: [id number], [id number]. res: air enrty diminshed at bases . abd: no rebound or guarding ,nt, bs present. ext pulses present , no cyanosis . neuro: axo3 , nonfocal. Vital Signs: Vital Signs: Last Vital Signs Temp 97.1 F 04/06/25 07:20 Pulse 84 04/06/25 07:43 Resp 16 04/06/25 07:43 BP 124/71 04/06/25 07:20 Pulse Ox 91 L 04/06/25 11:19 O2 Del Method Nasal Cannula 04/06/25 11:19 O2 Flow Rate 1.5 04/06/25 11:19 Oxygen Flow Rate 4 04/03/25 13:52 BMI result Body Mass Index 35.0 Objective Data Active Medications Acetaminophen (Acetaminophen 325 Mg Tablet) 650 mg PO Q6H PRN PRN Reason: Pain, Mild 1-3,fever,headache Last Admin: 04/05/25 23:45 Dose: 650 mg Documented By: JARAD Albuterol Sulfate (Albuterol Sulfate (0.083%) 2.5 Mg/3 Ml Vial.Neb) 2.5 mg INHALE Q6H PRN PRN Reason: Shortness of Breath/Wheezing Albuterol/Ipratropium (Albuterol/Iprat 2.5/0.5mg 3 Ml Ampul.Neb) 3 ml INHALE RQ6H WHILE AWAKE [facility] Last Admin: 04/06/25 07:43 Dose: 3 ml Documented By: GRAHAM Calcium Carbonate (Calcium Carbonate 750 Mg Tab.Chew) 750 mg PO Q4H PRN PRN Reason: Heartburn Dexamethasone Sodium Phosphate (Dexamethasone Sod Phosphate 4 Mg/Ml Vial) 6 mg IVPUSH Q24H [facility] Last Admin: 04/05/25 20:08 Dose: 6 mg Documented By: JARAD Enoxaparin Sodium (Enoxaparin Sodium 40 Mg/0.4 Ml Syringe) 40 mg SUBCUT Q24H [facility] Last Admin: 04/05/25 16:10 Dose: 40 mg Documented By: JENNIFER Fluticasone Propionate (Fluticasone Propionate Nasal 16 Gm [place]) 1 spray NOSTRIL-B DAILY [facility] Last Admin: 04/06/25 08:44 Dose: 1 spray Documented By: AMY Furosemide (Furosemide 40 Mg/4 Ml Vial) 40 mg IVPUSH BID@0900,1800 [facility]; Protocol Levothyroxine Sodium (Levothyroxine Sodium 88 Mcg Tablet) 88 mcg PO DAILY@0600 [facility] Last Admin: 04/06/25 05:53 Dose: 88 mcg Documented By: JARAD Loratadine (Loratadine 10 Mg Tablet) 10 mg PO DAILY PRN PRN Reason: allergies Magnesium Hydroxide (Milk Of Magnesia 30 Ml Oral.Susp) 30 ml PO DAILY PRN PRN Reason: Constipation Melatonin (Melatonin 3 Mg Tablet) 6 mg PO BEDTIME PRN PRN Reason: Insomnia Last Admin: 04/05/25 20:08 Dose: 6 mg Documented By: JARAD Comments: per pt request Sodium Chloride (0.9 % Sodium Chloride Flush 3 Ml Syringe) 3 ml IVFLUSH QSHIFT [facility] Last Admin: 04/06/25 08:44 Dose: 3 ml Documented By: AMY Labs 04/03/25 10:41 04/03/25 10:41 Assessment and Plan (1) COVID-19: Status: Acute Plan 39F PMH downs syndrome, asthma unspecified, hypothryoid presented with sob Acute hypoxic respiratory failure due to COVID-19 complicated by unspecified asthma with acute decompensation Attempted to weaned to room air but decided to 80s Still requiring 1.5L O2 Continue steroids, nebs May be component of acute unspecified CHF Check echo, empiric IV Lasix Hypothyroid Levothyroxine Morbid obesity Weight loss encouraged DVT prophylaxis with Lovenox reason for continued hospitalization: Still hypoxic, iv diuresis Quality Stroke Does the patient have a stroke diagnosis?: No VTE Prior VTE?: No VTE Risk Level:: Medical - moderate - high VTE Device Contraindication: N/A - Device Ordered VTE Drug Contraindication: N/A - Med Ordered
[2025-04-06] MEDS: Furosemide 40 MG/4 ML VIAL IVPUSH (17:43)
[2025-04-07 03:32] VITALS: BP 125/73; PULSE 68; RESP 16; TEMP 36.2; O2SAT 92
--- NOTE | 2025-04-07 05:09 | PC.NURSE ---
Pt urinated in hat in bathroom. Two small blood clots noted in the urine. Pt with no complaints. Will pass on to oncoming RN for ongoing care.
--- NOTE | 2025-04-07 07:00 | CA_ITS ---
Transthoracic Echocardiogram Patient (Last, First, Middle): Alexis Mares, Gender: Female Date of : 1985 Age: 39 Procedure Date: 04/07/2025 Procedure Type: Transthoracic Echocardiogram Location: [facility] – [place] Height: 134.62 cm Weight: 86.18 kg BSA: 1.67 m2 Heart Rate: bpm BP: 124 / 71 mmHg Conditioning Room Worker: Referring MD: Zeyad Marin MD Symptoms: chf Study Quality: Adequate Conclusions: - Normal left ventricular size and systolic function. There is moderately increased left ventricular wall thickness. The visually estimated ejection fraction is between 60-65%. - E/E prime ratio is >15, consistent with elevated filling pressures. - Normal right ventricular cavity size and systolic function. Findings Left Ventricle Normal left ventricular size and systolic function. There is moderately increased left ventricular wall thickness. The visually estimated ejection fraction is between 60-65%. There is no evidence of regional wall motion abnormalities. Abnormal diastolic function is noted. Spectral Doppler is indicative of an impaired relaxation filling pattern. E/E prime ratio is >15, consistent with elevated filling pressures. Right Ventricle Normal right ventricular cavity size and systolic function. Atria The left atrium is normal in size. The right atrium was not well visualized. Aortic Valve The aortic valve was not well visualized. There is no aortic valve stenosis. There is no aortic valve regurgitation. Mitral Valve The mitral valve appears normal. There is no mitral valve regurgitation. There is no mitral valve stenosis. Pulmonic Valve The pulmonic valve is likely normal. Tricuspid Valve Normal tricuspid valve structure. There is no tricuspid valve regurgitation. Tricuspid regurgitation envelope is inadequate for calculation of right ventricular systolic pressure. Normal right atrial pressure. Great Vessels All visible segments of the aorta are normal in size. Venous The inferior vena cava is normal in size and collapses greater than 50% with inspiration. Pericardium/Pleural There is no evidence of pericardial effusion. Prior Study Comparison No prior study available for comparison. Measurements 2D Linear Measurements IVSd: 1.26 0.6-0.9/0.6-1.0 cm LVIDd: 3.05 3.9-5.3/4.2-5.9 cm LVIDd Index: 1.83 2.4-3.2/2.2-3.1 cm/m2 LVIDs: 2.05 2.0-3.6 cm LVPWd: 1.22 0.7-1.1 cm LA Diam: 3.40 2.7-3.8/3.0-4.0 cm LAIDs Index: 2.04 1.5-2.3 cm/m2 LV Mass: 146.37 67-162/88-224 g LV Mass Index: 87.65 43-95/49-115 g/m2 LVOT Diam: 2.00 3.0+(-)1.3 cm 2D Systolic Function EF 4C: 69.40 >55% EF 2C: 69.40 >55% EF BiP: 69.40 >55% Mitral Valve MV Pk E: 0.69 MV PK A: 0.92 MV Decel Time: 307.00 E/A: 0.80 E'Lateral: 4.24 E'Medial: 4.68 E/E' Med: 14.80 E/E' Lat: 16.30 PHT: 90.00 MVA PHT: 2.44 Decel [place]: 2.26 Aortic Valve AoV Pk Maximo: 1.63 AoV Mn Maximo: 1.12 AoV VTI: 0.35 AoV Pk Grad: 11.00 Aov Mn Grad: 6.00 PUNEET Cont.VTI: 2.02 LVOT LVOT Pk Maximo: 0.96 LVOT Mn Maximo: 0.62 LVOT VTI: 0.23 LVOT Pk Grad: 4.00 LVOT Mn Grad: 2.00 LVOT Diam: 2.00 LVOT Area: 3.14 Diastolic Function MV Pk E: 0.69 MV Pk A: 0.92 E/A: 0.80 E'Medial: 4.68 E/E' Med: 14.80 E' Laterial: 4.24 E/E' Lat: 16.30 Right Ventricle TAPSE (mm): 20.40 TVS' Maximo: 11.30 Tricuspid Valve TR Pk Maximo: 1.73 TR Pk Grad: 12.00 Great Vessels Aorta Sinus of Valsalva: 2.70 2.0-3.5 cm Ao Asc: 2.70 2.1-3.4 cm Pulmonary Valve PV Pk Maximo: 0.90 Peak PV Grad: 3.00 Updated in Other Vendor System with Status of Final Solomon Naranjo MD electronically signed on 04/09/2025 6:44:20 PM with status of Final
[2025-04-07 07:21] LABS: Hematocrit 35.9 % (37.0-47.0); Hemoglobin 11.8 g/dl (12.0-16.0); Mean Corpuscular HGB Conc 32.9 g/dl (31.0-35.0); Mean Corpuscular Hemoglobin 31.0 pg (27.0-33.0); Mean Corpuscular Volume 94.2 fL (80.0-98.0); NRBC Abs Auto 0.000 X10*3/uL (0.0-0.012); NRBC Pct Auto 0.0 /100WBC (0.0-0.2); Platelet Count 463 X10*3/uL (160-400); Red Blood Count 3.81 X10*6/uL (4.20-5.50); White Blood Count 11.1 X10*3/uL (4.8-10.8)
[2025-04-07 07:25] VITALS: BP 120/72; PULSE 74; RESP 20; TEMP 36.4; O2SAT 93
[2025-04-07 07:39] LABS: Alanine Aminotransferase 11 U/L (0-31); Albumin Level 3.9 g/dL (3.5-5.0); Alkaline Phosphatase 75 U/L (39-117); Anion Gap 14 (12-20); Aspartate Amino Transferase 16 U/L (5-31); Blood Urea Nitrogen 28 mg/dL (9-16); Calcium 9.1 mg/dL (8.4-10.2); Carbon Dioxide 27 mmol/L (22-29); Chloride 102 mmol/L (96-108); Creatinine Clr Calc Pharmacy 57.8; Estimated Glomerular Filt Rate > 60; Magnesium 2.4 mg/dL (1.6-2.6); Potassium 4.4 mmol/L (3.3-5.1); Sodium 139 mmol/L (135-145); Total Protein 8.4 g/dL (6.5-8.0)
[2025-04-07] MEDS: Albuterol/Iprat 2.5/0.5MG 3 ML AMPUL.NEB INHALE (08:04)
[2025-04-07 08:44] VITALS: BP 120/72
[2025-04-07] MEDS: Furosemide 40 MG/4 ML VIAL IVPUSH (08:44)
[2025-04-07] MEDS: 0.9 % Sodium Chloride Flush 3 ML SYRINGE IVFLUSH (08:45)
[2025-04-07 10:30] VITALS: PULSE 77; PULSE 79; O2SAT 94; O2SAT 97
--- NOTE | 2025-04-07 11:22 | PM.DS ---
DS: Providers Provider Date of Service: 04/07/25 Date of admission: 04/03/25 15:06 Date of discharge: 04/07/25 Primary care physician: Gladys Borges MD DS: Diagnosis Discharge Diagnosis (1) COVID-19: Status: Acute DS: Summary Hospital Course Hospital Course: from initial hpi: 39-year-old female with a history of Down syndrome who was brought to the emergency department by family due to shortness of breath. History was primarily obtained from her sister at the bedside. Her sister states that she was seen in an outpatient clinic 1 month ago and was treated with a course of antibiotics. At that time she tested negative for coronavirus. She has had persistent dry cough and runny nose over the past several weeks and more recently has reported being tired with shortness of breath. Today she came to the emergency department for evaluation and tested positive for COVID-19 and chest x-ray showed possible pulmonary vascular congestion but pro BNP and troponin are both negative. She received breathing treatment prior to arrival, and an additional treatment plus Decadron in the emergency room. Oxygen saturation was 83% on room air initially, this improved to 92% on 4 L nasal cannula. Due to hypoxia she will be admitted to the hospital for further management. hospital course: Patient was admitted for acute hypoxic respiratory failure due to COVID 19 complicated by unspecified asthma with acute decompensation. Was treated with steroids, nebs and was weaned to room air. Symptoms completely resolved and she will be discharged home. Initially concern for component of acute unspecified CHF was given empiric IV Lasix but negative BNP make CHF less likely. For hypothyroid was continued on levothyroxine for morbid obesity weight loss was encouraged. Time Attestation Discharge Coordination Time (in mins): 32 Quality: Safe Use of Opioids Does Pt have an Active Cancer Diagnosis on the Problem List?: No Quality: Stroke Does the patient have a stroke diagnosis?: No Physical Exam Exam: Exam: Appearance: Alert.? Oriented X3. no distress cvs: rrr, [id number]. res: air enrty diminshed at bases . abd: no rebound or guarding ,nt, bs present. ext pulses present , no cyanosis . neuro: axo3 , nonfocal. Vital Signs: Vital Signs: Last Vital Signs Temp 97.5 F 04/07/25 07:25 Pulse 74 04/07/25 07:25 Resp 20 04/07/25 07:25 BP 120/72 04/07/25 08:44 Pulse Ox 93 04/07/25 07:25 O2 Del Method Nasal Cannula 04/07/25 07:25 O2 Flow Rate 1.5 04/07/25 07:25 Oxygen Flow Rate 4 04/03/25 13:52 BMI result Body Mass Index 35.0 DS: Data Data Completed and Pending Labs on day of discharge: Laboratory Results - last 24 hr 04/07/25 06:51 WBC 11.1 H RBC 3.81 L Hgb 11.8 L Hct 35.9 L MCV 94.2 MCH 31.0 MCHC 32.9 RDW 16.2 H Plt Count 463 H MPV 9.5 Absolute Nucleated RBC 0.000 Nucleated RBC % (auto) 0.0 Sodium 139 Potassium 4.4 Chloride 102 Carbon Dioxide 27 Anion Gap 14 BUN 28 H Creatinine 0.87 Estim Creat Clear Calc 57.8 Estimated GFR > 60 Random Glucose 168 H Calcium 9.1 Magnesium 2.4 Total Bilirubin 0.2 Direct Bilirubin < 0.2 AST 16 ALT 11 Alkaline Phosphatase 75 Total Protein 8.4 H Albumin 3.9 Discharge Plan Discharge Anticipated Discharge Date/Time: 04/07/25 11:20 Patient Disposition: Home, Self-Care Discharge Diagnosis: covid, chf Referrals: Gladys Borges MD [Primary Care Provider, Medical] - 1 Week Discharge Medications: Continued cetirizine 10 mg tablet 10 mg PO DAILY PRN (Reason: allergies) levothyroxine 88 mcg tablet 88 mcg PO DAILY@0600 fluticasone propionate 50 mcg/actuation spray,suspension 1 - 2 spray intranasal DAILY ipratropium bromide 21 mcg (0.03 %) spray,non-aerosol 1 spray intranasal Q12H Discharge Orders: Discharge Order (Routine); Ordered 04/07/25 Ordered By: Zeyad Marin Diet: Advance to usual diet Activity on Discharge: As tolerated Stand Alone Forms: Patient Portal Discharge page Print Language: Stateless Care Plan Goals: recovery Health Concerns: covid Plan of Treatment: appears resolved Assessment: see above
--- NOTE | 2025-04-07 13:02 | MHC.CM.PN ---
PT MEDICALLY CLEARED TO DC HOME W/RESUMP OF DAILY UNDER CUTTER HRS, NO NEW SERVICES ORDERED, FAMILY AT BEDSIDE AND WILL TRANSPORT
== END 2025-04-07 15:11 | disposition home or self-care (01) | DRG 177 ==
LOC: HO.ED 13:18 → HO.EDOVER 15:13 → HO.IMC 04-04 16:51
PROVIDERS: Physician Assistant; Physician Assistant Medical; Admitting Provider Physician Assistant Medical; Emergency Provider Emergency Medicine; PCP Internal Medicine; Visit Provider Internal Medicine
DX: U07.1 COVID-19 (principal); J96.01 Acute respiratory failure with hypoxia; J45.901 Unspecified asthma with (acute) exacerbation; Q90.9 Down syndrome, unspecified; E66.01 Morbid (severe) obesity due to excess calories; Z68.35 Body mass index [BMI] 35.0-35.9, adult; Z71.3 Dietary counseling and surveillance; E03.9 Hypothyroidism, unspecified; Z79.51 Long term (current) use of inhaled steroids; Z79.890 Hormone replacement therapy; Z79.899 Other long term (current) drug therapy
CPT/HCPCS: 36415; 71046; 80048; 80053; 80076; 83735; 83880; 84484; 85025; 85027; 87502; 87635; 93005; 93306; 94640; 99285; J1100; J1650; J1938; J3475

== ENCOUNTER → 2025-04-03 10:11 | Outpatient (BNV) | payer OTHER, SELFPAY | PROVIDERS: PCP Internal Medicine; Visit Provider Radiology Diagnostic Radiology | DX: R06.00 Dyspnea, unspecified (principal) | CPT/HCPCS: 71046 ==

== ENCOUNTER 2025-04-03 15:06 | Outpatient (BNV) | payer OTHER, SELFPAY | END 2025-04-07 07:00 | PROVIDERS: Admitting Provider Physician Assistant Medical; Emergency Provider Emergency Medicine; PCP Internal Medicine; Visit Provider Internal Medicine Cardiovascular Disease | DX: I51.89 Other ill-defined heart diseases (principal) | CPT/HCPCS: 93306 ==

== ENCOUNTER → 2025-04-03 15:06 | Outpatient (BNV) | payer OTHER, SELFPAY | PROVIDERS: Admitting Provider Physician Assistant Medical; Emergency Provider Emergency Medicine; PCP Internal Medicine; Visit Provider Physician Assistant Medical | DX: U07.1 COVID-19 (principal) | CPT/HCPCS: 99223; 99231; 99233 ==

== ENCOUNTER 2025-05-22 12:47 | Outpatient (REF) | payer OTHER, SELFPAY ==
--- OUTSIDE RECORDS SUMMARY | 2025-05-22 11:30 | XMS_ITS | Encounter Summary ---
Author Organization [employer] Address [address] [place] [address] 7 [place] [address] Care Team Providers Care Catering Associate Name Role Phone Gladys Borges MD Primary Care Provider Reason for Referral * Medications - Closed Specialty Diagnoses / Procedures Referred By Andrzej webb Referred To Contact Diagnoses Mild persistent asthma with (acute) exacerbation Gladys Borges MD [address] [place] [address] Phone: tel: fax: Referral ID Status Reason Start Date Expiration Date Visits Re quested Visits Authorized [id number] Closed 1 1 Reason for Visit * Reason Comments Follow-up Encounter Details Date Type Department Care Team (Latest Contact Info) Description 05/22/2025 11:30 AM EST Office Visit [facility] [address] [place] [address] [phone] Galdys Borges MD [address] [place] [phone] Nasal congestion (Primary Dx); Mild persistent asthma with (acute) exacerbation; Acquired hypothyroidism Social History Tobacco Use Types Packs/Day Years Used Date Smoking Tobacco: Never Passive Smoke Exposure: Never Smokeless Tobacco: Never Depression Answer Date Recorded Patient Health Questionnaire-9 Score 0 11/13/2022 Housing Stability Answer Date Recorded What is your housing situation today? I have jenny ferraro 05/12/[address] you li ve. Do you have problems with any of the following? None of the above 05/12/2025 Food Insecurity Answer Date Recorded Within the past 12 months, y ou worried that your food would run out before you got money to buy more: Never True 05/12/2025 Within the past 12 months,th e food you bought just didn't last and you didn't have enough money to get more: Never True Transportation Answer Date Recorded In the past 12 months, has l ack of transportation kept you from medical appts, meetings, work or from getting things needed for daily living? No 05/12/2025 Utilities Answer Date Recorded In the past 12 months, has t he electric, gas, oil or water company threatened to shut off services in your home? No 05/12/2025 Depression Answer Date Recorded Patient Health Questionnaire-2 Score 0 11/13/2022 Internet Access Answer Date Recorded Internet Access Q1 Yes 05/12/2025 Internet Access Q2 Not on file 05/12/2025 Comments Unknown Sex and Gender Information Value Date Recorded Sex Assigned at Female 05/12/2022 10:21 AM EDT Legal Sex Female 10:21 AM EDT Gender Identity Choose not to disclose 10:21 AM EDT Sexual Orientation Choose not to disclose 2021 10:21 AM EDT documented as of this encounter Last Filed Vital Signs Vital Sign Reading Time Taken Comments Blood Pressure 133/86 05/22/2025 12:08 PM EST Pulse 63 05/22/2025 12:08 PM EST Temperature 36.8 C (98.2 F) 05/22/2025 12:08 PM EST Respiratory Rate 20 05/22/2025 12:08 PM EST Oxygen Saturation 93% 05/22/2025 12:08 PM EST Inhaled Oxygen Concentration - - Weight 88 kg (194 lb) 05/22/2025 12:08 PM EST Height 130.8 cm (4' 3.5 ) 05/22/2025 12:08 PM ES T Body Mass Index 51.43 05/22/2025 12:08 PM EST documented in this encounter Progress Notes * Gladys Borges MD - 05/22/2025 11:30 AM EST SUBJECTIVE Alexis Curtisto is a 40 y.o. adult who presents for Follow-up. Alexis Miryam Mares, age 40 - Pt was evaluated at the last visit for a follow up Hospitalization for acute hypoxic respiratory failure - Asthma exacerbation with shortness of breath, evaluated after hospital discharge on 04/24/2025 - Improvement in respiratory symptoms following hospital discharge - Using albuterol nebulizer and inhaler; reports inhaler not effective enough, nebulizer preferred - Occasional nasal congestion prior to current visit - Concern about weight changes and possible thyroid involvement - No recent thyroid blood work performed Problem List[1] Allergies[2] Medications Ordered Prior to Encounter[3] Review of Systems Constitutional: Negative for chills, diaphoresis, fatigue and fever. HENT: Positive for congestion. Respiratory: Negative for cough, shortness of breath and stridor. Cardiovascular: Negative for leg swelling. Gastrointestinal: Negative for anal bleeding, blood in stool and constipation. Musculoskeletal: Negative for joint swelling and myalgias. OBJECTIVE Vitals: 05/22/25 1208 BP: 133/86 BP Location: Left arm Patient Position: Sitting BP Cuff Size: Adult Pulse: 63 Resp: 20 Temp: 98.2 ??F (36.8 ??C) TempSrc: Oral SpO2: 93% Weight: 194 lb (88 kg) Height: 4' 3.5 (1.308 m) Physical Exam Constitutional: General: Alexis is not in acute distress. Appearance: Normal appearance. Alexis is obese. Alexis is not ill-appearing, toxic-appearing or diaphoretic. Cardiovascular: Rate and Rhythm: Normal rate. Pulmonary: Effort: Pulmonary effort is normal. Neurological: General: No focal deficit present. Mental Status: Alexis is alert. Assessment/Plan Assessment/Plan Diagnoses and all orders for this visit: Nasal congestion - azelastine (Astelin) 0.1 % nasal spray; Administer 1 spray into each nostril 2 times daily. Use in each nostril as directed Mild persistent asthma with (acute) exacerbation Comments: Stable Orders: - albuterol (2.5 MG/3ML) 0.083% nebulizer solution; INHALE 3 MILLILITER BY NEBULIZER EVERY 6 HOURS NEEDED Acquired hypothyroidism - CBC auto differential; Future - TSH W/Reflex to FT4; Future - Comprehensive Metabolic Panel; Future - CBC auto differential; Future Mild persistent asthma with (acute) exacerbation: - Asthma is currently well controlled, no wheezing noted. - Refilled albuterol nebulizer prescription. No changes to current asthma management. Nasal congestion: - Nasal congestion present. - Prescribed azelastine nasal spray. Will reassess efficacy at next visit. Acquired hypothyroidism: - Recommended thyroid and lipid panel blood work to be done at convenience. This note was drafted using Ambient (AI) technology. The patient/patient's guardian has been informed and has consented to the use of this technology: Yes [1] Patient Active Problem List Diagnosis Anemia Complete trisomy 21 syndrome Hypercholesterolemia Hypothyroidism Impacted cerumen Menorrhagia Asthma exacerbation [2] No Known Allergies [3] Current Outpatient Medications on File Prior to Visit Medication Sig Dispense Refill albuterol 108 (90 Base) MCG/ACT inhaler Inhale 2 puffs Every 4-6 hours as needed for wheezing or shortness of breath. 18 g 3 cetirizine (ZyrTEC) 10 MG tablet TAKE 1 TABLET BY MOUTH ONCE DAILY NEEDED FOR ALLERGIES OR CONGESTION 90 tablet 0 D3-1000 25 MCG (1000 UT) capsule Take 25 mcg by mouth in the morning. ferrous sulfate 325 (65 Fe) MG tablet Take 1 tablet (325 mg) by mouth with breakfast. 30 tablet 3 fluticasone (Flonase) 50 MCG/ACT nasal spray ADMINISTER 1-2 SPRAYS INTO EACH NOSTRIL ONCE PER DAY. 48 mL 1 fluticasone furoate (Arnuity Ellipta) 100 MCG/ACT inhaler INHALE 1 PUFF BY MOUTH ONCE A DAY 1 each 3 hydrocortisone 2.5 % ointment Apply topically 2 times daily. 20 g 0 ipratropium (Atrovent) 0.03 % nasal spray Administer 1 spray into each nostril every 12 (twelve) hours. 30 mL 12 ketoconazole (NIZOral) 2 % cream Apply topically in the morning. 15 g 0 levothyroxine (Synthroid, Levoxyl) 88 MCG tablet TAKE 1 TABLET BY MOUTH EVERY DAY 90 tablet 3 Misc. Devices (Pulse Oximeter For Finger) misc To use daily 1 each 0 Multiple Vitamin (multivitamin) tablet Take 1 tablet by mouth in the morning. 30 tablet 3 Spacer/Aero-Holding Chambers (OptiChamber Petty) misc 1 each every 4 (four) hours if needed (asthma). 1 each 0 [DISCONTINUED] albuterol (2.5 MG/3ML) 0.083% nebulizer solution INHALE 3 MILLILITER BY NEBULIZER EVERY 6 HOURS NEEDED 75 mL 11 [DISCONTINUED] cetirizine (ZyrTEC) 10 MG tablet TAKE 1 TABLET BY MOUTH ONCE DAILY NEEDED FOR ALLERGIES OR CONGESTION 90 tablet 0 No current facility-administered medications on file prior to visit. documented in this encounter Plan of Treatment Upcoming Encounters Date Type Department Care Team (Late st Contact Info) Description 06/12/2025 2:00 PM EST Office Visit [facility] [address] [place] [address] Gladys Borges MD [address] [place], [place] [phone] Scheduled Orders Name Type Priority Associated Diagnoses Orde r Schedule TSH W/Reflex to FT4 Lab Routine Acquired hypothyroidism Expected: 05/22/2025 (Approximate), Expires: 05/22/2026 Comprehensive Metabolic Panel Lab Routine Acquired hypothyroidism Expected: 05/22/2025 (Approximate), Expires: 05/22/2026 CBC auto differential Lab Routine Acquired hypothyroidism Expected: 05/22/2025 (Approximate), Expires: 05/22/2026 documented as of this encounter Procedures Procedure Name Priority Date/Time Associated Diagnosis Comments CBC WITH AUTO DIFFERENTIAL Routine 05/22/2025 12:48 PM EST Acquired hypothyroidism documented in this encounter Results * (ABNORMAL) CBC auto differential (05/22/2025 12:48 PM EST) White Blood Count 5.5 4.8 - 10.8 X10*3/uL [facility] Red Blood Count 3.85(L) 4.20 - 5.50 X10*6/uL [facility] Hemoglobin 11.9(L) 12.0 - 16.0 g/dl [facility] Hematocrit 37.3 37.0 - 47.0 % [facility] Mean Corpuscular Volume 96.9 80.0 - 98.0 fL [facility] Mean Corpuscular Hemoglobin 30.9 27.0 - 33.0 pg [facility] Mean Corpuscular HGB Conc 31.9 31.0 - 35.0 g/dl [facility] Red Cell Distribution Width 15.6 11.0 - 16.0 % [facility] Platelet Count 429(H) 160 - 400 X10*3/uL [facility] Mean Platelet Volume 9.8 9.4 - 12.3 fL [facility] Neutrophils Percent Auto 68.1 45 - 73 % [facility] Imm Gran Pct Auto 0.4 0.0 - 0.4 % [facility] Lymphocytes Percent Auto 19.4(L) 20 - 40 % [facility] Monocytes Percent Auto 8.3 2 - 11 % [facility] Eosinophils Percent Auto 2.5 0 - 4 % [facility] Basophils Percent Auto 1.3 0 - 2 % [facility] NRBC Pct Auto 0.0 0.0 - 0.2 /100WBC [facility] Neutrophils Absolute Auto 3.8 2.0 - 8.3 x10*3/uL [facility] Imm Gran Abs Auto 0.02 0.00 - 0.03 X10*3/uL [facility] Lymphocytes Absolute Auto 1.1(L) 1.2 - 4.9 X10*3/uL [facility] Monocytes Absolute Auto 0.5 0.1 - 1.2 X10*3/uL [facility] Eosinophils Absolute Auto 0.1 0.0 - 0.4 X10*3/uL [facility] Basophils Absolute Auto 0.1 0.0 - 0.2 X10*3/uL [facility] NRBC Abs Auto 0.000 0.0 - 0.012 X10*3/uL [facility] Blood Venous blood specimen / Unknown 05/22/2025 12:48 PM EST 05/22/2025 2:17 PM EST us Gladys Borges MD LAB BLOOD ORDERABLES Final Result [facility] [address] [place] [address] [phone] documented in this encounter Visit Diagnoses Diagnosis Nasal congestion- Primary Other diseases of nasal cavity and sinuses Mild persistent asthma with (acute) exacerbation Acquired hypothyroidism Unspecified hypothyroidism documented in this encounter Additional Health Concerns Assessment Noted Time PHQ-9 Depression Total Score: 0 11/14/19 23 10:38 AM EDT documented as of this encounter Care Teams Catering Associate Relationship Specialty Start Date End Date Gladys Borges MD [address] [place] [phone] PCP - General Internal Medicine 07/13/18 documented as of this encounter
[2025-05-22 14:20] LABS: MANUAL DIFF FLAG NO
[2025-05-22 14:33] LABS: Hematocrit 37.3 % (37.0-47.0); Hemoglobin 11.9 g/dl (12.0-16.0); Imm Gran Abs Auto 0.02 X10*3/uL (0.00-0.03); Imm Gran Pct Auto 0.4 % (0.0-0.4); Lymphocytes Absolute Auto 1.1 X10*3/uL (1.2-4.9); Mean Corpuscular HGB Conc 31.9 g/dl (31.0-35.0); Mean Corpuscular Hemoglobin 30.9 pg (27.0-33.0); Mean Corpuscular Volume 96.9 fL (80.0-98.0); NRBC Abs Auto 0.000 X10*3/uL (0.0-0.012); NRBC Pct Auto 0.0 /100WBC (0.0-0.2); Platelet Count 429 X10*3/uL (160-400); Red Blood Count 3.85 X10*6/uL (4.20-5.50); White Blood Count 5.5 X10*3/uL (4.8-10.8)
--- OUTSIDE RECORDS SUMMARY | 2025-05-22 14:53 | XMS_ITS | Encounter Summary ---
Author Organization [employer] Address [address] [place] [address] 7 [place] [address] Care Team Providers Care Proof Passer Name Role Phone Gladys Borges MD Primary Care Provider [phone] Reason for Visit * Reason Onset Date Comments Medication Question 12/03/2023 Encounter Details Date Type Department Care Team ([facility] Contact Info) Description 12/03/2023 Telephone [facility] [address] [place] [address] Gladys Borges MD [address] [place] [phone] Medication Question Social History Tobacco Use Types [...] the past 12 months, has t he [employer], [employer], oil or water [employer] threatened to shut off services in your [...] is requesting rx to be sent to [facility] pharmacy. Please advise. * Telephone Encounter - Salome Radford - 12/03/2023 9:46 AM EDT Tc from pt sister calling to inform went to [facility] 2 times and they have not yet gotten medication script for carbamide peroxide (Debrox) 6.5 % otic solution . States would like for pcp to send script to [facility] pharmacy instead of [facility]. Please call pt sister to clarify. documented in this encounter Plan of Treatment Upcoming Encounters Date Type Department Care Team (Late st Contact Info) Description 06/12/2025 2:00 PM EST Office Visit [facility] [address] [place] [address] Gladys Borges MD [address] [place] [address] documented as of this encounter Visit Diagnoses Not on filedocumented in this encounter Additional Health Concerns Assessment Noted Time PHQ-9 Depression Total Score: 0 11/14/19 10:38 AM EDT documented as of this encounter Care Teams Proof Passer Relationship Specialty Start Date End Date Gladys Borges MD [address] [place] [phone] PCP - General Internal Medicine 07/13/18 documented as of this encounter
--- OUTSIDE RECORDS SUMMARY | 2025-05-22 14:53 | XMS_ITS | Encounter Summary ---
Author Organization [employer] Address [address] [facility] [address] [place] [address] Care Team Providers Care Insulation Estimator Name Role Phone Gladys Borges MD Primary Care Provider [phone] Reason for Visit * Reason Onset Date Comments Nurse Triage 04/26/2024 Encounter Details Date Type Department Care Team ([facility] st Contact Info) Description 04/26/2024 Telephone [facility] MEDIC[facility] [address] [place] [address] Gladys Borges MD [address] [place] [phone] Nurse Triage Social History Tobacco Use Types Packs/Day Years Used Date Smoking Tobacco: Never Passive Smoke Exposure: Never Smokeless Tobacco: Never Depression Answer Date Recorded Patient Health Questionnaire-9 Score 0 11/13/2022 Housing Stability Answer Date Recorded What is your housing situation today? I have jennygarbielle ferraro 05/04/[address] you [...] 04/26/2024 1:57 PM EDT Called pt. Via [employer]. Pt. States that She has an upcoming appt. For afu with PCP on 06/13/24 to recheck lip sore and swelling. Pt is looking for sooner appointment. Apptfor fu on lip has been rescheduled to 05/05/24 at 11:15am. Pt is requesting a printed copy be sent to her home address. I will send this note to [facility] PCP ANGUS to please print out [...] Upcoming Encounters Date Type Department Care Team ([facility] st Contact Info) Description 06/12/2025 2:00 PM EST Office Visit [facility] [address] [place] [address] Gladys Borges MD [address] [place] [address] documented as of this encounter Visit Diagnoses Not on filedocumented in this encounter Additional Health Concerns Assessment Noted Time PHQ-9 Depression Total Score: 0 11/14/19 23 10:38 AM EDT documented as of this encounter Care Teams Insulation Estimator Relationship Specialty Start Date End Date Gladys Borges MD [address] [place] [phone] PCP - General Internal Medicine 07/13/18 documented as of this encounter
--- OUTSIDE RECORDS SUMMARY | 2025-05-22 14:53 | XMS_ITS | Encounter Summary ---
Author Organization [employer] Address [address] [place] [address] [address] [place] [address] Care Team Providers Care Automotive Dismantler Name Role Phone Gladys Borges MD Primary Care Provider [phone] Encounter Details Date Type Department Care Team ([facility] st Contact Info) Description 02/10/2024 Orders Only [facility] [address] [place] [address] Gladys Borges MD [address] [place] [address] Menorrhagia with irregular cycle (Primary Dx); Other [...] Description 06/12/2025 2:00 PM EST Office Visit [facility] [address] [place] [address] Gladys Borges MD [address] [place] [address] documented as of this encounter Visit Diagnoses Diagnosis Menorrhagia with irregular cycle- Primary Other iron deficiency anemia documented in this encounter Additional Health Concerns Assessment Noted Time PHQ-9 Depression Total Score: 0 11/14/19 23 10:38 AM EDT documented as of this encounter Care Teams Automotive Dismantler Relationship Specialty Start Date End Date Gladys Borges MD [address] [place] [address] PCP - General Internal Medicine 07/13/18 documented as of this encounter
--- OUTSIDE RECORDS SUMMARY | 2025-05-22 14:53 | XMS_ITS | Encounter Summary ---
Author Organization [employer] Address [address] [facility] [address] [place] [address] Care Team Providers Care Boat Motor Mechanic Name Role Phone Gladys Borges MD Primary Care Provider [phone]- [phone] Reason for Visit * Reason Comments Med Refill Encounter Details Date Type Department Care Team (Late st Contact Info) Description 05/17/2025 Refill [facility] [address] [place] [address] Gladys Borges MD [address] [place], [place] [id number] Nasal congestion Social History Tobacco Use Types Packs/Day Years [...] Office Visit [facility] [address] [place] [address] Gladys Borges MD [address] [place] [address] documented as of this encounter Visit Diagnoses Diagnosis Nasal congestion Other diseases of nasal cavity and sinuses documented in this encounter Additional Health Concerns Assessment Noted Time PHQ-9 Depression Total Score: 0 11/14/19 23 10:38 AM EDT documented as of this encounter Care Teams Boat Motor Mechanic Relationship Specialty Start Date End Date Gladys Borges MD [address] [place] [address] PCP - General Internal Medicine 07/13/18 documented as of this encounter
--- OUTSIDE RECORDS SUMMARY | 2025-05-22 14:53 | XMS_ITS | Clinical Summary ---
Author Organization [employer] Address [address] [place] [address] 7[address] [place] [address] Care Team Providers Care Environmental Attorney Name Role Phone Gladys Borges MD Primary Care Provider [phone] Allergies No known active allergies Medications * This document contains information received from the source organization and may not represent a complete record from that organization. D3-1000 25 MCG (1000 UT) capsule Take 25 mcg by mouth in the morning. 022 Active Misc. Devices (Pulse Oximeter For Finger) miscIndications:M ild persistent asthma with (acute) exacerbation To use daily 1 each 023 Active ketoconazole (NIZOral) 2 % creamIndications: Perleche Apply topically in the morning. 15 g 023 Active Multiple Vitamin (multivitamin) tabletIndications :Acquired hypothyroidism Take 1 tablet by mouth in the morning. 30 tablet 3 023 Active ferrous sulfate 325 (65 Fe) MG tabletIndications :Menorrhagia with irregular cycle,Other iron deficiency anemia Take 1 tablet (325 mg) by mouth with breakfast. 30 tablet 3 024 Active levothyroxine (Synthroid, Levoxyl) 88 MCG tabletIndications :Hypothyroidism TAKE 1 TABLET BY MOUTH EVERY DAY 90 tablet 3 024 Active albuterol 108 (90 Base) MCG/ACT inhalerIndication s:Mild persistent asthma without complication Inhale 2 puffs Every 4-6 hours as needed for wheezing or shortness of breath. 18 g 3 025 Active Spacer/Aero-Holdi ng Chambers (OptiChamber Petty) misc 1 each every 4 (four) hours if needed (asthma). 1 each 025 Active hydrocortisone 2.5 % ointmentIndicatio ns:Angular cheilitis Apply topically 2 times daily. 20 g 025 Active ipratropium (Atrovent) 0.03 % nasal sprayIndications: Upper respiratory infection with cough and congestion Administer 1 spray into each nostril every 12 (twelve) hours. 30 mL 12 025 2025 Active fluticasone (Flonase) 50 MCG/ACT nasal spray ADMINISTER 1-2 SPRAYS INTO EACH NOSTRIL ONCE PER DAY. 48 mL 1 025 Active fluticasone furoate (Arnuity Ellipta) 100 MCG/ACT inhalerIndication s:Mild persistent asthma with (acute) exacerbation INHALE 1 PUFF BY MOUTH ONCE A DAY 1 each 3 025 Active cetirizine (ZyrTEC) 10 MG tabletIndications :Nasal congestion TAKE 1 TABLET BY MOUTH ONCE DAILY NEEDED FOR ALLERGIES OR CONGESTION 90 tablet 025 Active albuterol (2.5 MG/3ML) 0.083% nebulizer solutionIndicatio ns:Mild persistent asthma with (acute) exacerbation INHALE 3 MILLILITER BY NEBULIZER EVERY 6 HOURS NEEDED 75 mL 11 025 Active azelastine (Astelin) 0.1 % nasal sprayIndications: Nasal congestion Administer 1 spray into each nostril 2 times daily. Use in each nostril as directed 30 mL 12 025 2025 Active fluticasone (Flovent HFA) 110 MCG/ACT inhalerIndication s:Mild persistent asthma with (acute) exacerbation Inhale 1 puff every 12 (twelve) hours. 12 g 3 023 2024 Discontinued(T herapy completed) sodium chloride ([employer]) 0.65 % nasal sprayIndications: Nasal congestion Administer 1 spray into each nostril if needed for congestion or rhinitis. 15 mL 024 2024 albuterol (2.5 MG/3ML) 0.083% nebulizer solutionIndicatio ns:Mild persistent asthma with (acute) exacerbation INHALE 3 MILLILITER BY NEBULIZER EVERY 6 HOURS NEEDED 75 mL 11 025 2024 Discontinued(T herapy completed) cetirizine (ZyrTEC) 10 MG tabletIndications :Nasal congestion TAKE 1 TABLET BY MOUTH ONCE DAILY NEEDED FOR ALLERGIES OR CONGESTION 90 tablet 025 2024 Discontinued Mometasone Furoate (Asmanex, 30 Metered Doses,) 220 MCG/ACT aerosol powderIndications :Mild persistent asthma with (acute) exacerbation Inhale 1 Act (220 mcg) Once per day. 1 each 3 025 2024 Discontinued Fluticasone Propionate, Inhal, (Fluticasone Propionate Diskus) 100 MCG/ACT aerosol powderIndications :Mild persistent asthma with (acute) exacerbation Administer 100 mcg into each nostril Once per day. 60 each 11 025 2024 Discontinued fluticasone furoate (Arnuity Ellipta) 100 MCG/ACT inhalerIndication s:Mild persistent asthma with (acute) exacerbation INHALE 1 PUFF BY MOUTH ONCE A DAY 1 each 3 025 2024 Discontinued(R eorder (will not trigger notification to Pharmacy)) Active Problems Problem Noted Date Diagnosed Date [...] Encounters Date Type Department Care Team Description 05/22/2025 11:30 AM EST Office Visit [facility] CHC MED & PEDS [address] [place] [address] Gladys Borges MD Nasal congestion (Primary Dx); Mild persistent asthma with (acute) exacerbation; Acquired hypothyroidism 05/22/2025 Travel 05/17/2025 Refill [facility] MEDICINE [address] [place], [place] [phone] Gladys Borges MD Nasal congestion 05/12/2025 Patient Outreach [facility] MEDICINE [address] [place] [phone] Gladys Borges MD Pre-visit Planning (SDOH screening negative and Tobacco screening negative) 04/28/2025 Refill [facility] CH[facility] MED & PEDS [address] [place] [address] Gladys Borges MD Mild persistent asthma with (acute) exacerbation 04/26/2025 Refill [facility] MED & PEDS [address] [place] [address] Gladys Borges MD Mild persistent asthma with (acute) exacerbation 04/24/2025 3:30 PM EDT Office Visit [facility] MED & PEDS [address] [place] [address] Gladys Borges MD Mild persistent asthma with (acute) exacerbation (Primary Dx); Dietary counseling; Exercise counseling; Class 3 severe obesity due to excess calories with serious comorbidity and body mass index (BMI) of 50.0 to 59.9 in adult (HCC) 04/24/2025 Refill [facility] MED & PEDS [address] [place] [address] Gladys Borges MD Mild persistent asthma with (acute) exacerbation 04/21/2025 Telephone [facility] MED & PEDS [address] [place] [address] Gladys Borges MD chart prep 04/03/2025 9:20 AM EDT Office Visit [facility] WALK-IN [address] [address] Kely Aleman MD Acute severe exacerbation of asthma (Primary Dx) 04/03/2025 Orders Only [facility] External Provider, [facility] 04/03/2025 Travel 03/10/2025 Refill [facility] [address] [address] Gladys Borges MD 02/20/2025 9:40 AM EDT Office Visit [facility] WALKIN [address] [phone] Nasra Broderick MD Upper respiratory infection with cough and congestion (Primary Dx); Persistent cough 02/20/2025 Travel from Last 3 Months Immunizations Immunization Administration [...] Mass Index 51.43 05/22/2025 12:08 PM EST Plan of Treatment Upcoming Encounters Date Type Department Care Team (Late st Contact Info) Description 06/12/2025 2:00 PM EST Office Visit [facility] CHC MED & PEDS [address] [place] [address] Gladys Borges MD [address] [place] [address] Health Maintenance Due Date Last Done Comments Disability Screening 1983 Alcohol/Substance Use Screening 1995 Family Planning (PISQ) 1998 HPV Vaccines (1 - 3-dose series) 1998 Hepatitis B Vaccines (1 of 3 - 19+ 3-dose series) 2002 Pap Smear 2004 Cervical Cancer Screening 2013 HPV/Cotest 2013 Depression Screening 11/14/2023 11/13/2022, 11/14/19 23 COVID-19 Vaccine ( season) 2025 09/04/2021, 10/17/2020, 09/19/2020 Influenza Vaccine (#1) 2025 , 06/18/2023, 05/22/2022, Additional history exists DTaP/Tdap/Td Vaccines (2 - Td or Tdap) 05/09/2025 05/09/2015 Mammogram 01/05/2026 01/06/2024 SDOH Screening 05/12/2026 05/12/2025 Tobacco Screening 05/22/2026 05/22/2025 Lipid Panel 11/29/2028 11/30/2023, 05/0 10/2022, 05/06/2021, Additional history exists Zoster Vaccines (1 of 2) 2033 RSV [...] Routine 05/22/2025 12:48 PM EST Acquired hypothyroidism HIGH SENSITIVITY TROPONIN I Routine 04/03/2025 11:53 [...] Routine 01/06/2024 Screening mammogram for breast cancer LIPID PANEL, STANDARD Routine 11/30/2023 9:21 AM EDT Hypercholesterolemia Acquired hypothyroidism HEPATITIS C AB W/REFL TO HCV RNA, QN, PCR Routine 11/30/2023 8:01 AM EDT Menorrhagia with irregular cycle HIV 1/2 ANTIGEN/ANTIBODY, FOURTH GENERATION W/RFL Routine 11/30/2023 8:01 AM EDT Menorrhagia with irregular cycle from Last 3 Months or Most Recently Relevant to Health Maintenance Results * (ABNORMAL) CBC auto differential (05/22/2025 12:48 PM EST) Only the most recent of2 resultswithin the time period is included. White Blood Count 5.5 4.8 - 10.8 X10*3/uL [facility] Red Blood Count 3.85(L) 4.20 - 5.50 X10*6/uL [facility] Hemoglobin 11.9(L) 12.0 - 16.0 g/dl [facility] Hematocrit 37.3 37.0 - 47.0 % [facility] Mean Corpuscular Volume 96.9 80.0 - 98.0 fL [facility] Mean Corpuscular Hemoglobin 30.9 27.0 - 33.0 pg [facility] Mean Corpuscular HGB Conc 31.9 31.0 - 35.0 g/dl [facility] Red Cell Distribution Width 15.6 11.0 - 16.0 % [facility] Platelet Count 429(H) 160 - 400 X10*3/uL [facility] Mean Platelet Volume 9.8 9.4 - 12.3 fL [facility] Neutrophils Percent Auto 68.1 45 - 73 % [facility] Imm Gran Pct Auto 0.4 0.0 - 0.4 % [facility] Lymphocytes Percent Auto 19.4(L) 20 - 40 % [facility] Monocytes Percent Auto 8.3 2 - 11 % [facility] Eosinophils Percent Auto 2.5 0 - 4 % [facility] Basophils Percent Auto 1.3 0 - 2 % [facility] NRBC Pct Auto 0.0 0.0 - 0.2 /100WBC [facility] Neutrophils Absolute Auto 3.8 2.0 - 8.3 x10*3/uL [facility] Imm Gran Abs Auto 0.02 0.00 - 0.03 X10*3/uL [facility] Lymphocytes Absolute Auto 1.1(L) 1.2 - 4.9 X10*3/uL [facility] Monocytes Absolute Auto 0.5 0.1 - 1.2 X10*3/uL [facility] Eosinophils Absolute Auto 0.1 0.0 - 0.4 X10*3/uL [facility] Basophils Absolute Auto 0.1 0.0 - 0.2 X10*3/uL [facility] NRBC Abs Auto 0.000 0.0 - 0.012 X10*3/uL [facility] Blood Venous blood specimen / Unknown 05/22/2025 12:48 PM EST 05/22/2025 2:17 PM EST us Gladys Borges MD LAB BLOOD ORDERABLES Final Result Performing Organization Address City/[facility]/ZIP Co de Phone Number [facility] [address] [place] [phone] * High Sensitivity Troponin I (04/03/2025 11:53 AM EDT) TROPONIN I HIGH SENSITIVITY <2.7 <3.5 - 17.0 ng/L [facility] Comment:The Barrera high sens itivity Troponin-I results should beused in conjunction with other diagnostic information suchas ECG, clinical observations and information, and patientsymptoms to aid in the diagnosis of MS. 04/03/2025 11:5 3 AM EDT 04/03/2025 11:59 AM EDT us Generic External Data Provider LAB BLOOD ORDERAB LES Final Result Performing Organization Address [facility] Co de Phone Number [facility] [address] [place] [phone] * NT-proBNP (04/03/2025 11:53 AM EDT) NT-proBNP 17.9 <300 pg/mL [facility] Comment:Reference Range:Age Group (years) NT-proBNP (pg/ml) InterpretationAll <300 Negative: HF unlikelyFor patients presenting to the ED with clinical suspicion ofnew onset or worsening HF, see below:18 to <50 >299.9 to <450.0 Grayzone: Fkjnrezt19 to 75 >299.9 to <900.0 other causes of>75 >299.9 to <1800.0 NT-proBNP to <50 >449.9 Positive: HF -91 >899.9>75 >1799.9Note: Elevated NT-proBNP levels should be interpreted inthe context of other clinical information. 04/03/2025 11:5 3 AM EDT 04/03/2025 11:59 AM EDT Generic External Data Provider LAB BLOOD ORDERAB LES Final Result Performing Organization Address [facility] Co de Phone Number [facility] [address] [place] [phone] * Influenza A B2 ID NOW (Barrera) (04/03/2025 10:41 AM EDT) IDNOW SERIAL# [id number] [facility] Influenza A Negative Negative [facility] Influenza B2 Negative Negative [facility] Influenza A B2 Note See Note [facility] Comment:The Barrera ID NOW In fluenza [...] GENERAL ORDERABLES Final Result Performing Organization Address [facility] Co de Phone Number [facility] [address] [place] [phone] * (ABNORMAL) COVID-19 ID NOW (BARRERA) (04/03/2025 10:41 AM EDT) IDNOW SERIAL# [id number] [facility] COVID-19 TEST Positive (A) Negative [facility] COVID-19 NOTE See Note [facility] Comment: Results are for the identification of SARS-CoV2 RNA. TheSARS-CoV2 RNA is generally detectable in respiratory samplesduring the acute phase of infection. Positive results areindicative of the presence of SARS-CoV-2 RNA; clinicalcorrelation with patient history and other diagnosticinformation is necessary to determine patient infectionstatus. Positive results do not rule out bacterial infectionor co- infection with other viruses.Testing facilities within the [facility] and [facility] are required to report all positive results [...] use by authorized laboratories.Testing performed on the [employer] NOW utilizing NAAT. 04/03/2025 10:4 1 AM EDT 04/03/2025 10:45 AM EDT Generic External Data Provider LAB MOLECULAR RICARDA GNOSTICS ORDERABLES Final Result Performing Organization Address [facility]/ZIP Co de Phone Number [facility] [address] [place] [phone] * Magnesium (04/03/2025 10:41 AM EDT) Magnesium 2.0 1.6 - 2.6 mg/dL [facility] 04/03/2025 10:4 1 AM EDT 04/03/2025 10:45 AM EDT us Generic External Data Provider LAB BLOOD ORDERAB LES Final Result Performing Organization Address [facility]/ZIP Co de Phone Number [facility] [address] [place] [phone] * (ABNORMAL) Comprehensive Metabolic Panel (04/03/2025 10:41 AM EDT) Sodium 138 135 - 145 mmol/L [facility] Potassium 3.9 3.3 - 5.1 mmol/L [facility] Chloride 105 96 - 108 mmol/L [facility] Carbon Dioxide 27 22 - 29 mmol/L [facility] Anion Gap 10(L) 12 - 20 [facility] Urea Nitrogen (BUN) 15 9 - 16 mg/dL [facility] Creatinine, Serum 0.78 0.5 - 1.4 mg/dL [facility] Creatinine Clr Calc Pharmacy 64.4 [facility] Comment:Provided height and weight: 134.62 cm,63.503 kg.eGFR (calculated from the MDRD study equation) and eCrCl(calculated from the Cockcroft-Gault equation) are based ondifferent parameters and may not yield comparable results.If eCrCl result is absurd, please check patient'sheight/weight. Estimated Glomerular Filt Rate >60 [facility] Comment:Chronic Kidney Disea se: Estimated GFR < 60 mL/min/1.32l7Rabirs Kidney Disease: Estimated GFR < 15 mL/min/1.73m2 Glucose 104 60 - 115 mg/dL [facility] Calcium 8.8 8.4 - 10.2 mg/dL [facility] Bilirubin, Total 0.2 0.0 - 1.0 mg/dL [facility] Aspartate Amino Transferase 20 5 - 31 U/L [facility] Alanine Aminotransferase 11 0 - 31 U/L [facility] Total Protein 8.4(H) 6.5 - 8.0 g/dL [facility] Albumin Level 3.9 3.5 - 5.0 g/dL [facility] Alkaline Phosphatase 85 39 - 117 U/L [facility] 04/03/2025 10:4 1 AM EDT 04/03/2025 10:45 AM EDT us Generic External Data Provider LAB BLOOD ORDERAB LES Final Result [facility] [address] [place] [phone] * XR Chest 2 Views (04/03/2025 10:22 AM EDT) Anatomical Region Laterality Modality Chest Radiographic Irene ging 04/03/2025 10:2 2 AM EDT Narrative 04/03/2025 10:35 AM EDT [address] [address] XRay Report Signed Patient: Alexis Mares MR#: [id number] : 1985 Acct:[id number] Age/Sex: 39 / F ADM Date: 04/03/25 Loc: HO.ED Attending Dr: Ordering Physician: Kathrin Mills Date of Service: 04/03/25 Procedure(s): XR chest 2V Accession Number(s): [id number] cc: Gladys Borges MD; Kathrin Mills Reason [...] 04/03/25 1032 DD/ 1022 TD/TT: 04/03/25 1028 Film Projector Operator: Procedure Note Donotuseinterpreter, Image - 04/03/[address] [address] XRay Report Signed Patient: Brandon MaresR#: [id number] : 1985Acct:[id number] Age/Sex: 39 / FADM Date: 04/03/25 Loc: HO.ED Attending Dr: Ordering Physician: Kathrin Mills Date of Service: 04/03/25 Procedure(s): XR chest 2V Accession Number(s): [id number] cc: Gladys Borges MD; Kathrin Mills Reason [...] 04/03/25 1032 DD/ 1022 TD/TT: 04/03/25 1028 Film Projector Operator: [facility] External Provider IMG XR PROCEDURES Edited Result - Final * POCT Rapid Influenza A BARRERA ID NOW (02/20/2025 10:00 AM EDT) Influenza A Negative Negative, Indeterminate [facility] QC Media Lot # [id number] [facility] Lot# Expiration Date [facility] Swab 02/20/2025 10:0 0 AM EDT Nasra Broderick MD POINT OF CARE TEST ENTER/E DIT ORDERABLES Final Result [facility] [address] [place] [phone] * POCT Rapid Influenza B BARRERA ID NOW (02/20/2025 9:58 AM EDT) Influenza B Negative Negative, Indeterminate [facility] QC Media Lot # [id number] [facility] Lot# Expiration Date [facility] Swab 02/20/2025 9:58 AM EDT Nasra Broderick MD POINT OF CARE TEST ENTER/E DIT ORDERABLES Final Result [facility] [address] [place] [phone] [phone] * POCT Rapid Covid-19 BinaxNOW (02/20/2025 9:55 AM EDT) [facility] Rapid COVID Ag Negative Swab 02/20/2025 9:55 AM EDT Nasra Broderick MD POINT OF CARE TEST ENTER/E DIT ORDERABLES Final Result * POCT rapid strep A manually resulted (02/20/2025 9:44 AM EDT) [facility] Rapid Strep A Screen Negative Negative, None Detected Swab 02/20/2025 9:44 AM EDT Nasra Broderick MD POINT OF CARE TEST ENTER/E DIT ORDERABLES Final Result * BI Mammogram Screening Tomosynthesis Bilateral (01/06/2024) Anatomical Region Laterality Modality Breast Bilateral Mammography Gladys Borges MD IMG BI PROCEDURES Final Res ult * (ABNORMAL) Lipid Panel, Standard (11/30/2023 9:21 AM EDT) [facility] Triglycerides 92 <150 mg/dL [facility] Comment:Desirable Triglyceri de: less than 150 mg/dLBorderline High Triglyceride 150-199 mg/dLHigh Triglyceride: 200-499 mg/dLVery High Triglyceride: greater than or equal to 5OO mg/dL Cholesterol 192 <200 mg/dL [facility] Comment:Desirable Cholestero l: less than 200 mg/dLBorderline High Cholesterol: 200-239 mg/dLHigh Cholesterol: greater than 239 mg/dL LDL Cholesterol Calculated 142(H) <100 mg/dL [facility] Comment:Desirable LDL: less than 100 mg/dLNear Optimal/Above Optimal LDL: 110- 129 mg/dLBorderline High LDL: 130-159 mg/dLHigh LDL: 160-189 mg/dLVery High LDL: greater than or equal to 190 mg/dL HDL Cholesterol 32(L) >40 mg/dL [facility] Comment:Desirable HDL: great er than 40 mg/dL Note: This HDL assay may give artificially low results in patients with liver disease. Blood Venous blood specimen / Unknown 11/30/2023 9:21 AM EDT 11/30/2023 2:27 PM EDT us Gladys Borges MD LAB BLOOD ORDERABLES Final Result Performing Organization Address [facility] Co de Phone Number [facility] [address] [place] [phone] * Hepatitis C Antibody with Reflex to HCV, RNA, Quantitative, Real-Time PCR (11/30/2023 8:01 AM EDT) Hepatitis C Antibody Nonreactive Nonreactive [facility] Comment:Antibodies to HCV no t detected; does not exclude early acuteHCV infection. Blood Venous blood specimen / Unknown 11/30/2023 8:01 AM EDT 11/30/2023 2:27 PM EDT us Gladys Borges MD LAB BLOOD ORDERABLES Final Result Performing Organization Address [facility] Co de Phone Number [facility] [address] [place] [phone] * HIV-1/2 Antigen and Antibodies, Fourth Generation, with Reflexes (11/30/2023 8:01 AM EDT) HIV AB/AG Nonreactive Nonreactive [facility] Comment:HIV-1 p24 Ag and/or HIV-1/HIV-2 Ab not detected.A test result that is nonreactive does not exclude thepossibility of exposure to or infection with HIV-1 and/orHIV-2. Nonreactive results in this assay for individualswith prior exposure to HIV-1 and/or HIV-2 may be due toantigen and antibody levels that are below the limit ofdetection of this assay.The [employer] HIV Ag/Ab Combo assay result andsupplemental assay results should be interpreted inconjunction with the patient's clinical presentation,history and other laboratory results. If the results areinconsistent with clinical evidence, additional testing issuggested to confirm the result. Blood Venous blood specimen / Unknown 11/30/2023 8:01 AM EDT 11/30/2023 2:27 PM EDT us Gladys Borges MD LAB BLOOD ORDERABLES Final Result [facility] [address] [place] [phone] from Last 3 Months or Most Recently Relevant to Health Maintenance Insurance [employer] < [address] [place] [id number] Care Teams Environmental Attorney Relationship Specialty Start Date End Date Gladys Borges MD [address] [place] [phone] PCP - General Internal Medicine 07/13/18
--- OUTSIDE RECORDS SUMMARY | 2025-05-22 14:53 | XMS_ITS | Encounter Summary ---
Author Organization [employer] Address [address] [place] [address] Care Team Providers Care Metal Burrer Name Role Phone Gladys Borges MD Primary Care Provider [phone] Reason for Visit * Reason Onset Date Comments Call Back Request 04/13/2024 Encounter Details Date Type Department Care Team ([facility] st Contact Info) Description 04/13/2024 Telephone [facility] [address] [place] [address] Gladys Borges MD [address] [place] [address] Call Back Request Social History Tobacco Use [...] t he electric, gas, oil or water [employer] threatened to shut off services in your [...] - 04/13/2024 1:04 PM EDT Tc from [facility] with [facility] calling in regards to records she received. Records state she does not have a sulfa allergy but she can see from 2010 till recent she's always had a sulfa allergy. Sierra is requesting a call back to clarify if this is a mistake. Please contact Sierra at [phone] ext [phone]. documented in this encounter Plan of Treatment Upcoming Encounters Date Type Department Care Team (Late st Contact Info) Description 06/12/2025 2:00 PM EST Office Visit [facility] MED & PEDS [address] [place] [address] Gladys Borges MD [address] [place] [address] documented as of this encounter Visit Diagnoses Not on filedocumented in this encounter Additional Health Concerns Assessment Noted Time PHQ-9 Depression Total Score: 0 11/14/19 23 10:38 AM EDT documented as of this encounter Care Teams Metal Burrer Relationship Specialty Start Date End Date Gladys Borges MD [address] [place] [address] PCP - General Internal Medicine 07/13/18 documented as of this encounter
--- OUTSIDE RECORDS SUMMARY | 2025-05-22 14:53 | XMS_ITS | Encounter Summary ---
Author Organization [employer] Address [address] [place] [address] [address] [place] [address] Care Team Providers Care Electrotype Molder Name Role Phone Gladys Borges MD Primary Care Provider [phone] Reason for Visit * Reason Comments Med Refill Encounter Details Date Type Department Care Team ([facility] st Contact Info) Description 05/07/2024 Refill [facility] [address] [place] [address] Gladys Borges MD [address] [place] [address] Menorrhagia with irregular cycle; Other iron deficiency [...] Description 06/12/2025 2:00 PM EST Office Visit [facility] [address] [place] [address] Gladys Borges MD [address] [place] [address] documented as of this encounter Visit Diagnoses Diagnosis Menorrhagia with irregular cycle Other iron deficiency anemia documented in this encounter Additional Health Concerns Assessment Noted Time PHQ-9 Depression Total Score: 0 11/14/19 23 10:38 AM EDT documented as of this encounter Care Teams Electrotype Molder Relationship Specialty Start Date End Date Gladys Borges MD [address] [place] [address] PCP - General Internal Medicine 07/13/18 documented as of this encounter
--- OUTSIDE RECORDS SUMMARY | 2025-05-22 14:53 | XMS_ITS | Encounter Summary ---
Author Organization [employer] Address [address] [place] [address] [address] [place] [address] Care Team Providers Care Machine Baster Name Role Phone Gladys Borges MD Primary Care Provider [phone]- [phone] Encounter Details Date Type Department Care Team (Latest Contact Info) Description 05/22/2025 Travel Social History Tobacco Use Types Packs/Day [...] Description 06/12/2025 2:00 PM EST Office Visit [facility] [address] [place] [address] Gladys Borges MD [address] [place] [address] documented as of this encounter Visit Diagnoses Not on filedocumented in this encounter Additional Health Concerns Assessment Noted Time PHQ-9 Depression Total Score: 0 11/14/19 23 10:38 AM EDT documented as of this encounter Care Teams Machine Baster Relationship Specialty Start Date End Date Gladys Borges MD [address] [place] [address] PCP - General Internal Medicine 07/13/18 documented as of this encounter
--- OUTSIDE RECORDS SUMMARY | 2025-05-22 14:53 | XMS_ITS | Encounter Summary ---
Author Organization [employer] Address [address] [place] [address] [address] [place] [address] Care Team Providers Care Macaroni Maker Name Role Phone Gladys Borges MD Primary Care Provider [phone]- [phone] Encounter Details Date Type Department Care Team ([facility] st Contact Info) Description 12/03/2023 Orders Only [facility] [address] [place] [address] Gladys Borges MD [address] [place] [address] Impacted cerumen, unspecified laterality (Primary Dx) Social [...] Description 06/12/2025 2:00 PM EST Office Visit [facility] [address] [place] [address] Gladys Borges MD [address] [place] [address] documented as of this encounter Visit Diagnoses Diagnosis Impacted cerumen, unspecified laterality- Primary documented in this encounter Additional Health Concerns Assessment Noted Time PHQ-9 Depression Total Score: 0 11/14/19 23 10:38 AM EDT documented as of this encounter Care Teams Macaroni Maker Relationship Specialty Start Date End Date Gladys Borges MD [address] [place] [address] PCP - General Internal Medicine 07/13/18 documented as of this encounter
[2025-05-22 16:43] LABS: Alanine Aminotransferase 10 U/L (0-31); Albumin Level 3.8 g/dL (3.5-5.0); Alkaline Phosphatase 79 U/L (39-117); Anion Gap 14 (12-20); Aspartate Amino Transferase 21 U/L (5-31); Blood Urea Nitrogen 10 mg/dL (9-16); Calcium 9.0 mg/dL (8.4-10.2); Carbon Dioxide 24 mmol/L (22-29); Chloride 106 mmol/L (96-108); Estimated Glomerular Filt Rate > 60; Potassium 3.9 mmol/L (3.3-5.1); Sodium 140 mmol/L (135-145); Total Protein 8.0 g/dL (6.5-8.0)
[2025-05-22 17:16] LABS: Free T4 (Free Thyroxine) 0.94 ng/dL (0.71-1.85)
== END 2025-05-22 12:48 | disposition home or self-care (01) ==
LOC: HO.CHCLDS 12:47
PROVIDERS: Visit Provider Internal Medicine
DX: E03.9 Hypothyroidism, unspecified (principal)
CPT/HCPCS: 36415; 80053; 84439; 84443; 85025